=== PATIENT | female | born 1945 | race Caucasian/White ===

== ENCOUNTER → 2016-10-10 | Outpatient (CLI) | payer MEDICARE ==
[~2016-10-10] MED LIST: ADVAIR 250/501 EA INH; AMOXICILLIN500 MG PO; AUGMENTIN 875 M1 TAB PO; COMBIVENT1 ARO IH; DAYPRO600 M1 PO; DOXYCYCLINE HY100 M3 PO; Duoneb 3ML 3 MG/3 ML INH; FLONASE ALLERG9.9 ML NAS; MELATONIN5 M1 SL; OCEAN104 ML NS; PREDNISONE20 M1 PO; PROVENTIL0.09 MG/AC IH; SPIRIVA18 MCG PO; TORADOL10 MG PO; VIBRAMYCIN100 MG PO; ZYRTEC10 MG PO
[2016-10-10 10:04] LABS: HEMOGLOBIN A1c 5.1 % (4.8-5.6)
== END | disposition home or self-care (01) ==
LOC: LAB 09:19
PROVIDERS: Internal Medicine Pulmonary Disease
DX: R42 Dizziness and giddiness (principal); Z79.899 Other long term (current) drug therapy

== ENCOUNTER → 2017-09-12 | Day surgery (SDC) | payer MEDICARE ==
[~2017-09-12] VITALS: Ht 170.1 cm; Wt 77.1 kg
[~2017-09-12] MED LIST changes: +ANORO ELLIPTA1 EACH INH; +PROVENTIL HFA6.7 GM INH; +WARFARIN SODIUM4 MG PO
--- NOTE | ~2017-09-12 | O ---
[place], [place] OPERATIVE NOTE NAME: ALISHA FRANCIS UNIT #: [id number] ROOM: DOCTOR: ALEXANDRA DE LA CRUZ MD BIRTHDATE: [birth year] DOS: 09/12/2017 PREOPERATIVE DIAGNOSIS: Cataract, left eye. POSTOPERATIVE DIAGNOSIS: Cataract, left eye. OPERATION: Extracapsular cataract extraction by phacoemulsification with posterior chamber intraocular lens implantation, left eye. ANESTHESIA: Monitored standby. OPERATIVE FINDINGS AND PROCEDURE: 2% Xylocaine topical anesthetic gel was applied to the eye in the preop area. The patient was taken to the operating room and prepped and draped in the standard fashion for sterile intraocular surgery. A time out procedure was performed verifying correct patient, correct site and corrects lens with Teresa De La Cruz MD. The operating microscope was swung into position and the lid speculum was inserted. Using a Stephanie paracentesis blade, a paracentesis was made through clear cornea. Viscoelastic was used to fill the anterior chamber. Using a metal keratome a 2.4 mm self-sealing clear corneal cataract incision was made temporally at the limbus. Using a pre-bent 25 gauge cystotome needle, a standard continuous curvilinear capsulorrhexis was performed. The anterior capsule was removed with forceps. The lens nucleus was hydrodissected and phacoemulsified in the posterior chamber. Cortical material was removed with the irrigation aspiration hand piece and the posterior capsule was then polished with a curet under irrigation. The posterior chamber and capsular bag were filled with viscoelastic. A posterior chamber intraocular lens manufactured by: Dg, Model #[id number], and 30.0 diopters in strength were then inserted into the posterior chamber and within the capsular bag using the lens cartridge and injector system. Viscoelastic was removed using the irrigation aspiration handpiece. The anterior chamber was filled with balanced salt solution through the paracentesis. Both the paracentesis site and cataract incisions were hydrated with BSS and verified to be water-tight and self-sealing. Cefuroxime 1 mg/0.1 mL was injected into the anterior chamber through the paracentesis site. The incision checked to be water-tight using a Weck-Skylar sponge. The integrity of the cataract wound and ocular tension were checked. Lid speculum and drapes were removed. The patient was transferred from the operating room to the recovery room in satisfactory condition. [place], [place] OPERATIVE NOTE NAME: ALISHA FRANCIS UNIT #: [id number] ROOM: DOCTOR: ALEXANDRA DE LA CRUZ MD BIRTHDATE: [birth year] ALEXANDRA DE LA CRUZ MD CM:OPRECORD:OPERATIVE NOTE [id number] ALEXANDRA DE LA CRUZ MD 09/12/17 1024 interface
[2017-09-12 09:00] VITALS: BP 133/54
[2017-09-12 10:14] VITALS: BP 128/63
[2017-09-12 10:29] VITALS: BP 122/47
[2017-09-12 10:44] VITALS: BP 128/54
== END | disposition home or self-care (01) ==
LOC: SDC 09-06 10:15
DX: H25.812 Combined forms of age-related cataract, left eye (principal); J44.9 Chronic obstructive pulmonary disease, unspecified; F41.9 Anxiety disorder, unspecified; F32.9 Major depressive disorder, single episode, unspecified; Z87.891 Personal history of nicotine dependence; I48.91 Unspecified atrial fibrillation

== ENCOUNTER → 2017-10-10 | Day surgery (SDC) | payer MEDICARE ==
[~2017-10-10] VITALS: Ht 170.1 cm; Wt 77.1 kg
--- NOTE | ~2017-10-10 | O ---
[place], [place] OPERATIVE NOTE [id number] UN[facility] #: [id number] ROOM: DOCTOR: ALEXANDRA DE LA CRUZ MD BIRTHDATE: [birth year] DOS: 10/10/2017 PREOPERATIVE DIAGNOSIS: Cataract, right eye. POSTOPERATIVE DIAGNOSIS: Cataract, right eye. OPERATION: Extracapsular cataract extraction by phacoemulsification with posterior chamber intraocular lens implantation, right eye. ANESTHESIA: Monitored standby. OPERATIVE FINDINGS AND PROCEDURE: 2% Xylocaine topical anesthetic gel was applied to the eye in the preop area. The patient was taken to the operating room and prepped and draped in the standard fashion for sterile intraocular surgery. A time out procedure was performed verifying correct patient, correct site and corrects lens with Teresa De La Cruz M.D. The operating microscope was swung into position and the lid speculum was inserted. Using a Stephanie paracentesis blade, a paracentesis was made through clear cornea. Viscoelastic was used to fill the anterior chamber. Using a metal keratome a 2.4 mm self-sealing clear corneal cataract incision was made temporally at the limbus. Using a pre-bent 25 gauge cystotome needle, a standard continuous curvilinear capsulorrhexis was performed. The anterior capsule was removed with forceps. The lens nucleus was hydrodissected and phacoemulsified in the posterior chamber. Cortical material was removed with the irrigation aspiration hand piece and the posterior capsule was then polished with a curet under irrigation. The posterior chamber and capsular bag were filled with viscoelastic. A posterior chamber intraocular lens manufactured by: Dg, Model #[id number], and 29.0 diopters in strength were then inserted into the posterior chamber and within the capsular bag using the lens cartridge and injector system. Viscoelastic was removed using the irrigation aspiration handpiece. The anterior chamber was filled with balanced salt solution through the paracentesis. Both the paracentesis site and cataract incisions were hydrated with BSS and verified to be water-tight and self-sealing. Cefuroxime 1 mg/0.1 mL was injected into the anterior chamber through the paracentesis site. The incision checked to be water-tight using a Weck-Skylar sponge. The integrity of the cataract wound and ocular tension were checked. Lid speculum and drapes were removed. The patient was transferred from the operating room to the recovery room in satisfactory condition. [place], [place] OPERATIVE NOTE NAME: ALISHA FRANCIS UNIT #: [id number] ROOM: DOCTOR: ALEXANDRA DE LA CRUZ MD BIRTHDATE: [birth year] ALEXANDRA DE LA CRUZ MD CM:OPRECORD:OPERATIVE NOTE [id number] ALEXANDRA DE LA CRUZ MD 10/10/17 1244 interface
[2017-10-10 11:15] VITALS: BP 123/48
[2017-10-10 11:50] VITALS: BP 119/63
[2017-10-10 12:05] VITALS: BP 124/71
[2017-10-10 12:20] VITALS: BP 120/55
== END | disposition home or self-care (01) ==
LOC: SDC 10-08 13:15
DX: H25.811 Combined forms of age-related cataract, right eye (principal); J44.9 Chronic obstructive pulmonary disease, unspecified; F41.9 Anxiety disorder, unspecified; F32.9 Major depressive disorder, single episode, unspecified; Z87.891 Personal history of nicotine dependence; I48.91 Unspecified atrial fibrillation

== ENCOUNTER 2018-05-05 00:26 | Emergency (ER) | payer MEDICARE ==
[~2018-05-05] VITALS: Ht 170.1 cm; Wt 81.6 kg
--- NOTE | ~2018-05-05 | EKG ---
[place], [place] ELECTROCARDIOGRAM REPORT NAME: ALISHA FRANCIS UNIT #: [id number] ROOM: DOCTOR: CONNERANY DRAFT REPORT BIRTHDATE: [birth year] [facility] Test Date: 2018-05-05 Test Time: 00:33:29 Pat Name: ALISHA FRANCIS Department: Room: Gender: F Library Helper: iman : 1945 Requested By: JEREMIAS CRABTREE Order Number: [id number] Reading MD: Greg Muhammad MD Measurements Intervals [place] Rate: 173 P: 0 AL: 91 QRS: 25 QRSD: 74 T: 72 QT: 275 QTc: 467 Interpretive Statements Supraventricular tachycardia Multiform ventricular premature complexes Low voltage, extremity leads Abnormal R-wave progression, late transition ST depression, probably rate related Artifact in lead(s) I,II,III,aVR,aVL,aVF,V1,V5,V6 Electronically Signed On 05-06-2018 8:04:50 PDT by Greg Muhammad MD CM:EKGRPT:ELECTROCARDIOGRAM REPORT [id number] JEREMIAS LOYA DRAFT REPORT JEREMIAS CRABTREE DO
[2018-05-05 01:06] LABS: BASO # 0.1 10*3/uL (0.0-0.1); BASO % 0.5 % (0.0-1.0); EOS # 0.1 10*3/uL (0.0-0.4); EOS % 0.5 % (1.0-4.0); HEMATOCRIT 40.1 % (37.0-47.0); HEMOGLOBIN 12.8 g/dl (12.0-16.0); LYMPH # 2.6 10*3/uL (1.3-4.4); LYMPH % 17.7 % (27.0-41.0); MEAN CELL VOLUME 94.6 fl (81.0-99.0); MEAN CORPUSCULAR HGB 30.2 pg (27.0-31.0); MEAN CORPUSCULAR HGB CONC 31.9 g/dl (33.0-37.0); MEAN PLATELET VOLUME 9.9 fl (9.6-12.3); MONO % 6.6 % (3.0-9.0); NEUT # 10.8 10*3/uL (2.3-7.9); NEUT % 74.4 % (47.0-73.0); PLATELET COUNT AUTOMATED 241 10*3/uL (130-400); RED BLOOD COUNT 4.24 10*6/uL (4.10-5.10); RED CELL DISTRI WIDTH 13.7 % (0-14.5); WHITE BLOOD COUNT 14.6 10*3/uL (4.8-10.8)
[2018-05-05 01:16] LABS: ACT PARTIAL THROMBO TIME 37.1 SECONDS (20.8-31.5); INTERNATIONAL NORM RATIO 3.1 (2.0-3.5)
[2018-05-05 01:23] LABS: ABG BASE EXCESS -4.5 mmol/L (-2.0-2.0); ABG HCO3 23.9 mmol/l (22-26); ARTERIAL BLOOD GAS PCO2 58.4 mmHg (35-45); ARTERIAL BLOOD GAS PH 7.228 (7.35-7.45)
[2018-05-05 01:24] LABS: ALBUMIN 3.8 gm/dl (3.1-4.5); ALKALINE PHOSPHATASE 78 U/L (45-117); BUN 13 mg/dl (7-24); CHLORIDE 107 mmol/L (98-107); CREATININE 0.82 mg/dL (0.55-1.02); POTASSIUM 3.7 mmol/L (3.5-5.1); SGOT/AST 20 IU/L (3-35); SGPT/ALT 20 U/L (12-78); SODIUM 139 mmol/L (136-145)
[2018-05-05 01:25] LABS: TROPONIN I < 0.015 ng/ml (<0.045)
== END 2018-05-05 08:00 | disposition home or self-care (01) ==
LOC: ED 00:26
PROVIDERS: Student in an Organized Health Care Education/Training Program
DX: I48.91 Unspecified atrial fibrillation (principal); J44.9 Chronic obstructive pulmonary disease, unspecified; Z79.02 Long term (current) use of antithrombotics/antiplatelets; Z79.899 Other long term (current) drug therapy

== ENCOUNTER 2018-08-19 14:30 | Emergency (ER) | payer MEDICARE, OTHER ==
[~2018-08-19] VITALS: Ht 170.1 cm; Wt 74.8 kg
[2018-08-19] MEDS ORDERED: ZITHROMAX250 MG PO (15:30)
== END 2018-08-19 16:00 | disposition home or self-care (01) ==
LOC: ED 14:30
DX: J06.9 Acute upper respiratory infection, unspecified (principal); I48.91 Unspecified atrial fibrillation; Z79.899 Other long term (current) drug therapy; Z79.01 Long term (current) use of anticoagulants

== ENCOUNTER 2019-04-25 08:39 | Inpatient (IN) | payer MEDICARE, OTHER ==
[2019-04-25] VITALS (9 sets, daily range): BP systolic 100–125; BP diastolic 47–67
[~2019-04-25] VITALS: Ht 165.1 cm; Wt 69.9 kg
--- NOTE | ~2019-04-25 | EKG ---
[place], [place] ELECTROCARDIOGRAM REPORT NAME: ALISHA FRANCIS UNIT #: [id number] ROOM: 507 DOCTOR: GEETA DRAFT REPORT BIRTHDATE: [birth year] [facility] Test Date: 2019-04-25 Test Time: 08:58:45 Pat Name: ALISHA FRANCIS Department: Room: 507 Gender: F Legal Coordinator: WAI : 1945 Requested By: STEPHANIE HOOKER Order Number: [id number] Reading MD: Enrique Reed MD Measurements Intervals [place] Rate: 90 P: 85 NV: 156 QRS: -39 QRSD: 85 T: 64 QT: 337 QTc: 413 Interpretive Statements Sinus rhythm Left axis deviation Borderline low voltage, extremity leads Compared to ECG 05/05/2018 00:33:29 Left-axis deviation now present Supraventricular tachycardia no longer present Ventricular premature complex(es) no longer present ST (T wave) deviation no longer present Electronically Signed On 04-25-2019 12:30:16 PDT by Enrique Reed MD CM:EKGRPT:ELECTROCARDIOGRAM REPORT [id number] STEPHANIE LOYA DRAFT REPORT STEPHANIE HOOKER DO
[~2019-04-25 08:39] MED LIST changes: +ZITHROMAX250 MG PO
[2019-04-25 09:15] LABS: HEMATOCRIT 40.6 % (37.0-47.0); HEMOGLOBIN 13.1 g/dl (12.0-16.0); MEAN CELL VOLUME 90.4 fl (81.0-99.0); MEAN CORPUSCULAR HGB 29.2 pg (27.0-31.0); MEAN CORPUSCULAR HGB CONC 32.3 g/dl (33.0-37.0); MEAN PLATELET VOLUME 10.4 fl (9.6-12.3); PLATELET COUNT AUTOMATED 207 10*3/uL (130-400); RED BLOOD COUNT 4.49 10*6/uL (4.10-5.10); RED CELL DISTRI WIDTH 14.6 % (0-14.5); WHITE BLOOD COUNT 20.6 10*3/uL (4.8-10.8)
[2019-04-25 09:25] LABS: INTERNATIONAL NORM RATIO 1.6 (2.0-3.5)
[2019-04-25 09:32] LABS: ALBUMIN 3.6 gm/dl (3.1-4.5); ALKALINE PHOSPHATASE 83 U/L (45-117); BUN 10 mg/dl (7-24); CHLORIDE 101 mmol/L (98-107); CREATININE 0.96 mg/dL (0.55-1.02); POTASSIUM 3.7 mmol/L (3.5-5.1); SGOT/AST 12 IU/L (3-35); SGPT/ALT 17 U/L (12-78); SODIUM 135 mmol/L (136-145); TOTAL PROTEIN 7.4 gm/dL (6.4-8.2)
[2019-04-25 09:38] LABS: TROPONIN I < 0.015 ng/ml (<0.045)
[2019-04-25 09:39] LABS: THYROID STIM HORMONE (HS) 0.944 uIU/ml (0.358-4.75)
[2019-04-25 09:46] LABS: TOTAL CELLS COUNTED 100 #CELLS
[2019-04-25 09:47] LABS: PLATELET SUFFICIENCY NORMAL (NORMAL); POLYCHROMASIA SLIGHT
[2019-04-25 10:02] LABS: BILIRUBIN NEGATIVE (NEGATIVE); BLOOD 1+ (NEGATIVE); CLARITY SL CLOUDY (CLEAR); COLOR YELLOW (YELLOW); GLUCOSE NEGATIVE (NEGATIVE); KETONE TRACE (NEGATIVE); LEUKO ESTERASE TRACE (NEGATIVE); NITRITE NEGATIVE (NEGATIVE); PH 6.5 (5.0-9.0); SPECIFIC GRAVITY <= 1.005 (1.005-1.030); UROBILINOGEN 0.2 E.U./dl (0.2-1.0)
[2019-04-25 10:24] LABS: BACTERIA 2+; EPITHELIAL CELLS 15-20; WBC 21-30 wbc/hpf (0-5)
[2019-04-25 10:25] LABS: RBC 16-20 rbc/hpf (0-2)
--- NOTE | 2019-04-25 10:45 | NUR ---
PATIENT MEDICATED WITH MORPHINE FOR HEADACHE PRESSURE BEHIND BOTH EYES 3/10.
--- NOTE | 2019-04-25 11:00 | NUR ---
A 74, admitted to , under the services of LILIAN Schneider DO with a diagnosis of SYNCOPE NAUSEA HEADACHE. Chief complaint is HEADACHE. Patient arrived via stretcher from ER. Monitor applied. Initial assessment completed. Vital signs taken and recorded. LILIAN SCHNEIDER DO notified of admission to the unit. Orders received. See assessment for past medical history, medications and allergies. Patient and/or family oriented to unit. [address] visitation policy reviewed. Clothing/patient valuable form completed. ARLET LOPEZ
[2019-04-25] MEDS ORDERED: BREO ELLIPTA 21 EACH INH (11:39)
[2019-04-25] MEDS ORDERED: DIAZEPAM2 MG PO (11:40)
--- NOTE | 2019-04-25 15:01 | NUR ---
PHYSICAL THERAPY Physical therapy evaluation attempted however Pt refused. Will attempt at another date. Thank you Kailee Gallardo, PT, DPT
--- NOTE | 2019-04-25 15:02 | NUR ---
Patient declined Occupational Therapy stating she was "too tired" . Charissa Robles OTR/l
--- NOTE | 2019-04-25 21:00 | NUR ---
RESTING IN BED WITH NO ACUTE DISTRESS NOTED. RESPIRATIONS EASY. LUNGS DIMINISHED WITH FAINT EXPIRATORY WHEEZES. PULSE OX 93% RA. OFFERED AND EDUCATED REGARDING TEDS, DECLINED. CALL LIGHT WITHIN REACH. NO VOICED COMPLAINTS.
--- NOTE | 2019-04-25 22:42 | NUR ---
REQUESTED AND RECEIVED NORCO PER PRN ORDER FOR COMPLAINTS OF HEADACHE RATING A 6. ALSO MEDICATED WITH RESTORIL TO ASSIST WITH SLEEP. WILL MONITOR
--- NOTE | 2019-04-25 23:00 | NUR ---
PATIENT REQUESTING HOME MEDS STATING "I HAVE TO HAVE MY COUMADIN." ,ED REC REVIEWED AND ACCURATE IN COMPUTER. DR ZAFAR CONTACTED AND INFORMED
[2019-04-26] VITALS: BP 95/48
--- NOTE | 2019-04-26 | NUR ---
EARLIER MEDS APPEAR EFFECTIVE. SLEEPING. RESPIRATIONS EASY. VSS. CALL LIGHT WITHIN REACH
--- NOTE | 2019-04-26 00:24 | NUR ---
24 HR chart check completed.
--- NOTE | 2019-04-26 06:00 | NUR ---
SLEPT THROUGHOUT NIGHT WITH NO DISTRESS NOTED. RESPIRATIONS EASY. CALL LIGHT WITHIN REACH. NO VOICED COMPLAINTS THIS SHIFT
[2019-04-26 07:21] LABS: INTERNATIONAL NORM RATIO 1.8 (2.0-3.5)
[2019-04-26 07:23] LABS: BASO % 0.3 % (0.0-1.0); EOS # 0.1 10*3/uL (0.0-0.4); EOS % 0.4 % (1.0-4.0); HEMATOCRIT 33.6 % (37.0-47.0); HEMOGLOBIN 10.7 g/dl (12.0-16.0); LYMPH % 6.5 % (27.0-41.0); MEAN CORPUSCULAR HGB 29.8 pg (27.0-31.0); MEAN CORPUSCULAR HGB CONC 31.8 g/dl (33.0-37.0); MEAN PLATELET VOLUME 10.8 fl (9.6-12.3); MONO # 0.9 10*3/uL (0.1-1.0); MONO % 6.1 % (3.0-9.0); NEUT # 12.6 10*3/uL (2.3-7.9); NEUT % 86.2 % (47.0-73.0); PLATELET COUNT AUTOMATED 162 10*3/uL (130-400); RED BLOOD COUNT 3.59 10*6/uL (4.10-5.10); WHITE BLOOD COUNT 14.6 10*3/uL (4.8-10.8)
[2019-04-26 07:25] LABS: MEAN CELL VOLUME 93.6 fl (81.0-99.0)
[2019-04-26 07:34] LABS: BUN 12 mg/dl (7-24); CHLORIDE 109 mmol/L (98-107); CHOLESTEROL 110 mg/dL (<200); CREATININE 0.75 mg/dL (0.55-1.02); HDL CHOLESTEROL 52 mg/dl (40-60); LDL CHOLESTEROL 50 mg/dL (9-159); PHOSPHOROUS 2.8 mg/dL (2.5-4.9); POTASSIUM 4.2 mmol/L (3.5-5.1); SODIUM 139 mmol/L (136-145); TRIGLYCERIDES 38 mg/dl (<150); VLDL CHOLESTEROL 8 mg/dL (6-40)
[2019-04-26 08:00] VITALS: BP 108/54
[2019-04-26 12:00] VITALS: BP 112/55
[2019-04-26 16:00] VITALS: BP 143/74
[2019-04-26 20:00] VITALS: BP 141/70
--- NOTE | 2019-04-26 20:56 | NUR ---
PATIENT RESTING IN BED FOR SHIFT ASSESSMENT. PLEASANT/COOPERATIVE WITH CARE. C/O NASUEA. MEDICATED WITH PRN ZOFRAN ORDERED. NO FURTHER VOICED COMPLAINTS. 2LNC MAINTAINED. CALL LIGHT IN REACH. WILL MONITOR.
[2019-04-27] VITALS: BP 136/70
--- NOTE | 2019-04-27 03:23 | NUR ---
PATIENT SLEEPING. NO S/S OF DISTRESS NOTED. CALL LIGHT IN REACH
--- NOTE | 2019-04-27 05:40 | NUR ---
PATIENT MEDICATED WITH PRN TYLENOL ORDERED FOR C/O A HEADACHE.
[2019-04-27 07:33] LABS: HEMATOCRIT 37.2 % (37.0-47.0); HEMOGLOBIN 11.8 g/dl (12.0-16.0); MEAN CORPUSCULAR HGB 28.9 pg (27.0-31.0); MEAN CORPUSCULAR HGB CONC 31.7 g/dl (33.0-37.0); MEAN PLATELET VOLUME 11.2 fl (9.6-12.3); PLATELET COUNT AUTOMATED 210 10*3/uL (130-400); RED BLOOD COUNT 4.09 10*6/uL (4.10-5.10); RED CELL DISTRI WIDTH 14.6 % (0-14.5); WHITE BLOOD COUNT 11.4 10*3/uL (4.8-10.8)
[2019-04-27 07:44] LABS: INTERNATIONAL NORM RATIO 1.9 (2.0-3.5)
[2019-04-27 07:56] LABS: PLATELET SUFFICIENCY NORMAL (NORMAL); TOTAL CELLS COUNTED 100 #CELLS
[2019-04-27 08:00] VITALS: BP 160/84
[2019-04-27 08:09] LABS: BUN 11 mg/dl (7-24); CHLORIDE 108 mmol/L (98-107); SODIUM 140 mmol/L (136-145)
[2019-04-27 08:11] LABS: CREATININE 0.66 mg/dL (0.55-1.02)
--- NOTE | 2019-04-27 09:30 | NUR ---
DR ALLEN NOTIFIED OF PT CONTINUED HEADACHE, NEW ORDERS TO FOLLOW
[2019-04-27 12:00] VITALS: BP 128/60
[2019-04-27 16:00] VITALS: BP 137/73
--- NOTE | 2019-04-27 16:50 | NUR ---
PT CONCERNED RE: INR LEVEL. PT NOTIFIED NEW INR ORDERED FOR THE AM. DR DILLON NOTIFIED. HE STATES THEY WILL LOOK AT IT TOMORROW AND ADJUST IF NECESSARY
[2019-04-27 20:00] VITALS: BP 131/77
--- NOTE | 2019-04-27 20:49 | NUR ---
Neurological: AAOX3, ANXIOUS Respiratory: NONLABORED, ROOM AIR Breath sounds: DIMINISHED, WHEEZE PB Cough: DRY COUGH Cardiovascular: IRREGULAR HX:AFIB, DENIES CP/PRESSURE, NO EDEMA, PPP Gastrointestinal: NORMOACTIVE X4 QUADS, DENIES N/V/D/C, ABD SOFT/NT/ND Genito/Urinary: DENIES DYSURIA Musculoskeketal: AMBULATORY, GAIT STEADY, SKIN INTACT PATIENT IS RESTING IN BED WITH EASY AND REGULAR RESPERS ON ROOM AIR. ASSESSMENT IS COMPLETE. PATIENT AAPPEARS ANXIOUS AND C/O SINUS HEADACHE AND ANXIETY. PRN TYLENOL AND VAILUM PROVIDED FOR HEADACHE AND ANXIETY. BED IS LOW, LOCKED, AND CALL LIGHT IS WITHIN REACH. WILL CONTNIUE TO MONITOR. GABRIELA DE LA CRUZ A
[2019-04-28] VITALS: BP 124/67
--- NOTE | 2019-04-28 04:58 | NUR ---
Patient sleeping. Respirations relaxed and easy. GABRIELA DE LA CRUZ
--- NOTE | 2019-04-28 06:35 | NUR ---
24 HR chart check completed.
[2019-04-28 06:44] LABS: HEMATOCRIT 33.3 % (37.0-47.0); HEMOGLOBIN 10.7 g/dl (12.0-16.0); MEAN CELL VOLUME 90.2 fl (81.0-99.0); MEAN CORPUSCULAR HGB CONC 32.1 g/dl (33.0-37.0); MEAN PLATELET VOLUME 10.8 fl (9.6-12.3); PLATELET COUNT AUTOMATED 236 10*3/uL (130-400); RED BLOOD COUNT 3.69 10*6/uL (4.10-5.10); RED CELL DISTRI WIDTH 14.7 % (0-14.5); WHITE BLOOD COUNT 17.1 10*3/uL (4.8-10.8)
[2019-04-28 06:46] LABS: BUN 20 mg/dl (7-24); CHLORIDE 107 mmol/L (98-107); CREATININE 0.69 mg/dL (0.55-1.02); POTASSIUM 3.8 mmol/L (3.5-5.1); SODIUM 138 mmol/L (136-145)
--- NOTE | 2019-04-28 06:57 | NUR ---
Patient sleeping. Respirations relaxed and easy. Call light is within reach. GABRIELA DE LA CRUZ
[2019-04-28 07:14] LABS: INTERNATIONAL NORM RATIO 2.9 (2.0-3.5)
--- NOTE | 2019-04-28 07:30 | NUR ---
TOOK OVER CARE OF PT AT THIS TIME. PT LYING IN BED. RESPIRATIONS EASY AND UNLABORED ON ROOM AIR. NO S/S OF DISTRESS. NO COMPLAINTS VOICED. ALL SAFETY MEASURES IN PLACE. CALL LIGHT IN REACH.
[2019-04-28 07:47] LABS: PLATELET SUFFICIENCY NORMAL (NORMAL); TOTAL CELLS COUNTED 100 #CELLS
[2019-04-28 08:00] VITALS: BP 139/86
--- NOTE | 2019-04-28 09:00 | NUR ---
Bookkeeper in to talk to patient. Patient states lives at home with . There are few steps in the home. Physician: ellen Pharmacy: [facility] Home health services: none Patient's level of ADLs: INDEPENDENT Patient has working utilities: all working DME: none Follow-up physician's appointment after d/c: will be made by hospitalist nurse director upon discharge Does patient want to access PORTAL?: no Discharge plan discussed with patient, she states she lives at home with her , she is independent in adls and ambulation, she states she is independent in adls and ambulation she states she will be returning home today and denies any home needs. RANDELL SANTOS
[2019-04-28] MEDS ORDERED: PREDNISONE10 MG PO (09:01)
[2019-04-28] MEDS ORDERED: LEVAQUIN500 M2 PO (09:01)
[2019-04-28] MEDS ORDERED: VITAMIN D32000 UNI1 PO (09:01)
--- NOTE | 2019-04-28 09:30 | NUR ---
Occupational Therapy evaluation offered this date. Patient seated in chair and responds that she is being discharged today. No occupational therapy evaluation performed Charissa Robles OTR/Arcelia
--- NOTE | 2019-04-28 09:32 | NUR ---
PHYSICAL THERAPY Physical therapy evaluation attempted however Pt sitting in bedside chair waiting for discharge papers. Pt has no therapy needs. Thank you Kailee Gallardo, PT, DPT
--- NOTE | 2019-04-28 10:25 | NUR ---
PT GIVEN TYLENOL FOR C/O HEADACHE. WILL MONITOR FOR EFFECTIVENESS. CALL LIGHT IN REACH.
--- NOTE | 2019-04-28 11:00 | NUR ---
DR ROWELL'S OFFICE CALLED TO CONFIRM PT NEXT APPOINTMENT FOR INR CHECK. APPOINTMENT IS FOR NEXT SUNDAY, PATIENT NOTIFIED AND PAPERWORK TO BE SENT HOME WITH PATIENT.
--- NOTE | 2019-04-28 11:40 | NUR ---
Discharge instructions reviewed with patient/family. Patient receptive and verbalizes understanding. Follow-up care arranged. Written instructions given to patient/family. LAWSON TORRES
== END 2019-04-28 11:40 | disposition home or self-care (01) | DRG 871 ==
LOC: ED 08:39 → EDHOLD 10:32 → 5E 10:32
PROVIDERS: Internal Medicine; Student in an Organized Health Care Education/Training Program; ADMIT Emergency Medicine
DX: A41.9 Sepsis, unspecified organism (principal); J18.1 Lobar pneumonia, unspecified organism; N17.9 Acute kidney failure, unspecified; N39.0 Urinary tract infection, site not specified; R55 Syncope and collapse; R65.20 Severe sepsis without septic shock; E86.0 Dehydration; R73.9 Hyperglycemia, unspecified; F41.9 Anxiety disorder, unspecified; F32.9 Major depressive disorder, single episode, unspecified; I48.91 Unspecified atrial fibrillation; J43.9 Emphysema, unspecified; I27.20 Pulmonary hypertension, unspecified; Z83.6 Family history of other diseases of the respiratory system; Z83.79 Family history of other diseases of the digestive system

== ENCOUNTER → 2019-05-23 | Outpatient (CLI) | payer MEDICARE, OTHER ==
[~2019-05-23] MED LIST changes: +BREO ELLIPTA 21 EACH INH; +DIAZEPAM2 MG PO; +LEVAQUIN500 M2 PO; +PREDNISONE10 MG PO; +VITAMIN D32000 UNI1 PO
[2019-05-23 13:49] LABS: FREE T4 1.11 ng/dl (0.76-1.46)
[2019-05-23 13:54] LABS: THYROID STIM HORMONE (HS) 1.88 uIU/ml (0.358-4.75)
[2019-05-26 11:07] LABS: ANTI-DSDNA ANTIBODIES 096339 <1 IU/mL (0-9); ANTI-RNP ANTIBODIES <0.2 AI (0.0-0.9); ANTICHROMATIN ANTIBODIES <0.2 AI (0.0-0.9); ANTISCLERODERMA-70 AB 0.7 AI (0.0-0.9); SJOGREN ANTI-SS-A <0.2 AI (0.0-0.9); SJOREN AB, ANTI-SS-B <0.2 AI (0.0-0.9)
== END | disposition home or self-care (01) ==
LOC: LAB 12:31
PROVIDERS: Internal Medicine Pulmonary Disease
DX: R42 Dizziness and giddiness (principal); R53.83 Other fatigue

== ENCOUNTER → 2019-06-06 | Outpatient (CLI) | payer MEDICARE, OTHER ==
[2019-06-06 08:30] VITALS: BP 139/71
[2019-06-07 12:10] LABS: CORTISOL #2 20.9 ug/dL (Not Estab.); CORTISOL #3 26.1 ug/dL (Not Estab.); CORTISOL BASELINE 12.1 ug/dL (.)
== END | disposition home or self-care (01) ==
LOC: INJECTION 06-03 07:39
PROVIDERS: Internal Medicine Pulmonary Disease
DX: R42 Dizziness and giddiness (principal)

== ENCOUNTER 2020-05-15 02:30 | Inpatient (IN) | payer MEDICARE, OTHER ==
[2020-05-15] VITALS (12 sets, daily range): BP systolic 98–189; BP diastolic 53–98
[~2020-05-15] VITALS: Ht 170.1 cm; Wt 72.8 kg
[~2020-05-15 02:30] MED LIST changes: -DIAZEPAM2 MG PO; +DIAZEPAM5 MG PO
[2020-05-15 02:56] LABS: BASO # 0.1 10*3/uL (0.0-0.1); BASO % 0.9 % (0.0-1.0); EOS # 0.1 10*3/uL (0.0-0.4); EOS % 1.2 % (1.0-4.0); HEMATOCRIT 33.2 % (37.0-47.0); LYMPH # 1.8 10*3/uL (1.3-4.4); LYMPH % 21.1 % (27.0-41.0); MEAN CORPUSCULAR HGB 25.1 pg (27.0-31.0); MEAN CORPUSCULAR HGB CONC 29.2 g/dl (33.0-37.0); MEAN PLATELET VOLUME 10.4 fl (9.6-12.3); MONO # 0.6 10*3/uL (0.1-1.0); MONO % 6.5 % (3.0-9.0); NEUT # 6.1 10*3/uL (2.3-7.9); NEUT % 70.1 % (47.0-73.0); PLATELET COUNT AUTOMATED 224 10*3/uL (130-400); RED BLOOD COUNT 3.86 10*6/uL (4.10-5.10); WHITE BLOOD COUNT 8.7 10*3/uL (4.8-10.8)
[2020-05-15 03:07] LABS: ACT PARTIAL THROMBO TIME 31.9 SECONDS (20.0-32.1)
[2020-05-15 03:14] LABS: ALBUMIN 3.7 gm/dl (3.1-4.5); ALKALINE PHOSPHATASE 89 U/L (45-117); BUN 14 mg/dl (7-24); CHLORIDE 108 mmol/L (98-107); CREATININE 0.76 mg/dL (0.55-1.02); POTASSIUM 3.4 mmol/L (3.5-5.1); SGOT/AST 13 IU/L (3-35); SGPT/ALT 16 U/L (12-78); SODIUM 143 mmol/L (136-145); TOTAL PROTEIN 6.9 gm/dL (6.4-8.2)
--- NOTE | 2020-05-15 03:14 | NUR ---
Pt has postive pedal pulses and plus one edema noted to lower legs at this time.
[2020-05-15 03:15] LABS: TROPONIN I < 0.015 ng/ml (<0.045)
--- NOTE | 2020-05-15 03:22 | NUR ---
In to see pt at this time.Pt states she is still having trouble breathing at this time md aware at this time and stated he woild order another treatment at this time.
--- NOTE | 2020-05-15 04:07 | NUR ---
Pt has small skin tear noted on left lower arm at this time.Pt has bandaid in place and took off and it was about 1cm at this time.Pt is alert and oriented at this time and refusing wound photos.
[2020-05-15 04:14] LABS: ABG BASE EXCESS 2.6 mmol/L (-2.0-2.0); ARTERIAL BLOOD GAS PH 7.341 (7.35-7.45)
--- NOTE | 2020-05-15 04:14 | NUR ---
Pt to ct scan at this time.
--- NOTE | 2020-05-15 04:30 | NUR ---
Pt back from ct scan at this time.Pt appears more calm at this time and pt not breathing as fast at this time.
--- NOTE | 2020-05-15 04:50 | NUR ---
A 75, admitted to [facility], under the services of CHIP Tavera DO with a diagnosis of SOB,COPD,AFIB RVR, and patchy atelectasis. Chief complaint is shortness of breath. Patient arrived via stretcher from ER. Monitor applied. Initial assessment completed. Vital signs taken and recorded. CHIP TAVERA DO notified of admission to the unit. Orders received. See assessment for past medical history, medications and allergies. Patient and/or family oriented to unit. [facility] visitation policy reviewed. Clothing/patient valuable form completed. ANA GRAY
[2020-05-15 04:53] LABS: THYROID STIM HORMONE (HS) 4.59 uIU/ml (0.358-4.75)
[2020-05-15] MEDS ORDERED: FLUDROCORTISON0.1 MG PO (05:13)
[2020-05-15 05:51] LABS: CPK 123 U/L (26-192)
--- NOTE | 2020-05-15 08:40 | NUR ---
Awake and alert. Listless. Declines to order breakfast. Spouse called in and update was given.
--- NOTE | 2020-05-15 10:15 | NUR ---
[facility].
--- NOTE | 2020-05-15 11:00 | NUR ---
Dr. Pearson was notified of consult . virtual visit w/ pt. Orders were recieved
--- NOTE | 2020-05-15 12:12 | NUR ---
Medicated for c/o headache. Lunch ordered. Spouse called in and update was given. RT notified of ABG and aersol orders.
[2020-05-15 12:56] LABS: ABG BASE EXCESS 4.8 mmol/L (-2.0-2.0); ARTERIAL BLOOD GAS PH 7.404 (7.35-7.45)
--- NOTE | 2020-05-15 14:09 | NUR ---
Cardizem to off.
[2020-05-15 14:25] LABS: BUN 11 mg/dl (7-24); CHLORIDE 106 mmol/L (98-107); CREATININE 0.84 mg/dL (0.55-1.02); SODIUM 144 mmol/L (136-145)
--- NOTE | 2020-05-15 20:05 | NUR ---
2200 PO DOSE OF LOPRESSOR GIVEN AT THIS TIME PATIENT HAD GOTTEN UP TO THE BATHROOM AND HEARTRATE BEGAN TO CLIMB INTO THE 140'S. PATIENT NOW BACK TO BED BUT HEARTRATE IS SUSTAINING IN THE 120'S. PATIENT DENIES FEELING ANY SYMPTOMS OF AFIB. RN WILL CONTINUE TO MONITOR
[2020-05-15] MEDS ORDERED: FLONASE ALLERG9.9 ML NAS (20:42)
--- NOTE | 2020-05-15 21:02 | NUR ---
PATIENT MEDICATED WITH CEPACOL COUGH DROP AND VALIUM PER DRS ORDERS FOR COMPLAINTS OF PERSISTENT COUGH AND FEELINGS OF ANXIOUSNESS. RN WILL CONTINUE TO MONITOR
--- NOTE | 2020-05-15 22:05 | NUR ---
PATIENT RESING IN BED WITH EYES CLOSED, APPEARS TO BE SLEEPING, EARLIER MEDICATIONS SEEM TO HAVE BEEN EFFECTIVE
--- NOTE | 2020-05-15 23:10 | NUR ---
Shift chart check completed.24 HR chart check completed.
[2020-05-16] VITALS: BP 114/84
--- NOTE | 2020-05-16 02:28 | NUR ---
SPOKE WITH PATIENT REGARDING HER PLAN OF CARE. UPDATED HIM ON AVAILABLE INFORMATION AND INSTRUCTED HIM TO CALL AND TALK TO THE PATIENT AT A LATER HOUR HER SLEEP IS IMPORTANT. HE VERBALIZED UNDERSTANDING. RN WILL CONTINUE TO MONITOR THIS PATIENT
[2020-05-16 04:00] VITALS: BP 119/76; BP 90/43
--- NOTE | 2020-05-16 04:20 | NUR ---
PATIENT MEDICATED WITH SCHEDULED ANTIBIOTIC WELL PRN CEPACOL COUGH DROPS SHE HAS BEEN COUGHING AND IT HAS NOW BECOME AVAILABLE TO GIVE AGAIN. PATIENT STATES IT HELPED SLIGHTLY EARLIER HER THROAT HAD BECOME SORE FROM COUGHING. RN WILL MONITOR
--- NOTE | 2020-05-16 06:10 | NUR ---
PATIENT MEDICATED WITH NORCO FOR COMPLAINTS OF HEADACHE,. RN WILL CONTINUE TO MONITOR
[2020-05-16 06:39] LABS: HEMATOCRIT 32.6 % (37.0-47.0); MEAN CELL VOLUME 85.6 fl (81.0-99.0); MEAN CORPUSCULAR HGB 25.2 pg (27.0-31.0); MEAN CORPUSCULAR HGB CONC 29.4 g/dl (33.0-37.0); MEAN PLATELET VOLUME 10.6 fl (9.6-12.3); PLATELET COUNT AUTOMATED 241 10*3/uL (130-400); RED BLOOD COUNT 3.81 10*6/uL (4.10-5.10); RED CELL DISTRI WIDTH 15.2 % (0-14.5)
[2020-05-16 06:49] LABS: INTERNATIONAL NORM RATIO 3.4 (2.0-3.5)
[2020-05-16 06:59] LABS: ALBUMIN 3.4 gm/dl (3.1-4.5); ALKALINE PHOSPHATASE 79 U/L (45-117); BUN 19 mg/dl (7-24); CHLORIDE 107 mmol/L (98-107); POTASSIUM 4.4 mmol/L (3.5-5.1); SGOT/AST 13 IU/L (3-35); SGPT/ALT 16 U/L (12-78); SODIUM 143 mmol/L (136-145)
[2020-05-16 08:00] VITALS: BP 108/73
[2020-05-16 08:11] LABS: ABG BASE EXCESS 5.6 mmol/L (-2.0-2.0); ARTERIAL BLOOD GAS PH 7.41 (7.35-7.45)
[2020-05-16 08:12] LABS: TOTAL CELLS COUNTED 100 #CELLS
[2020-05-16 08:13] LABS: PLATELET SUFFICIENCY NORMAL (NORMAL)
[2020-05-16 12:00] VITALS: BP 128/84
--- NOTE | 2020-05-16 12:20 | NUR ---
PT MEDICATED WITH NORCO 1 TAB PO FOR C/O HEADACHE PAIN.
[2020-05-16 16:00] VITALS: BP 126/81
[2020-05-16 20:00] VITALS: BP 134/90
[2020-05-17] VITALS: BP 131/84
[2020-05-17 07:01] LABS: BASO % 0.1 % (0.0-1.0); HEMATOCRIT 31.6 % (37.0-47.0); LYMPH # 0.9 10*3/uL (1.3-4.4); LYMPH % 5.4 % (27.0-41.0); MEAN CELL VOLUME 85.4 fl (81.0-99.0); MEAN CORPUSCULAR HGB 25.7 pg (27.0-31.0); MEAN CORPUSCULAR HGB CONC 30.1 g/dl (33.0-37.0); MEAN PLATELET VOLUME 10.5 fl (9.6-12.3); MONO # 0.7 10*3/uL (0.1-1.0); MONO % 3.9 % (3.0-9.0); NEUT # 15.5 10*3/uL (2.3-7.9); NEUT % 89.8 % (47.0-73.0); PLATELET COUNT AUTOMATED 252 10*3/uL (130-400); RED CELL DISTRI WIDTH 15.4 % (0-14.5); WHITE BLOOD COUNT 17.3 10*3/uL (4.8-10.8)
[2020-05-17 07:20] LABS: INTERNATIONAL NORM RATIO 4.4 (2.0-3.5)
[2020-05-17 07:29] LABS: BUN 24 mg/dl (7-24); CHLORIDE 105 mmol/L (98-107); POTASSIUM 4.4 mmol/L (3.5-5.1); SODIUM 139 mmol/L (136-145)
--- NOTE | 2020-05-17 07:30 | NUR ---
PT RESTING IN BED. RESPS EASY AND NON LABORED. NO S/S OF DISTRESS NOTED. VSS. WHITE BOARD UPDATED. POC DISCUSSED W PT. A/O X3. 3L NC INTACT. DENIES SOB. WILL CONTINUE TO MONITOR. CALL LIGHT WITHIN REACH.
[2020-05-17 08:00] VITALS: BP 128/80
--- NOTE | 2020-05-17 10:08 | NUR ---
SPEECH PATHOLOGY Speech therapist attempted to see patient for evaluation. Nurse on floor informed clinician that this patient is suspected COVID-19 positive and requested the speech evaluation wait until the COVID-19 test results are returned. Speech will follow up as appropriate. Thank you, Charissa Siddiqui MS, CCC-HOUSEKEEPING SUPERVISOR
--- NOTE | 2020-05-17 10:16 | NUR ---
IV started left forearm with #22 protective cath after 1 attempts. Site prepped with Chloroprep. Sterile dressing applied. Patient tolerated procedure well. GEORGETTE JAIN
[2020-05-17 12:00] VITALS: BP 126/82; BP 139/94
--- NOTE | 2020-05-17 13:35 | NUR ---
Weasand Trimmer in to talk to patient. Patient states lives at home with . There are no steps in the home. Physician: ellen Pharmacy: [facility] [place] health services: none Patient's level of ADLs: INDEPENDENT Patient has working utilities: all working DME: none Follow-up physician's appointment after d/c: will be made by hospitalist nurse director upon discharge Does patient want to access PORTAL?: no Discharge plan discussed with patient, she states she lives at home with her , she is independent in adls and ambulation, she states she will return home when discharged and denies any home needs, case management will follow. RANDELL SANTOS
--- NOTE | 2020-05-17 13:46 | NUR ---
EXAM ON HOLD PER DR. ROWELL PENDING RESULT OF COVID 19 TEST.
--- NOTE | 2020-05-17 14:39 | NUR ---
Patient resting quietly with no c/o discomfort. Respirations easy and regular. Vital signs stable. No overt distress. HISSOM,GEORGETTE
--- NOTE | 2020-05-17 15:24 | NUR ---
PT C/O 610 ACHING HEADACHE. MEDICATED PER ORDER. WILL MONITOR FOR RELIEF. RESPS EASY AND NON LABORED. RESTING IN BED WATCHING TV. CALL LIGHT WITHIN REACH.
--- NOTE | 2020-05-17 16:24 | NUR ---
MEDICATION EFFECTIVE PER PT
[2020-05-17 20:00] VITALS: BP 116/79
--- NOTE | 2020-05-17 21:28 | NUR ---
PATIENT GIVEN CEPACOL FOR SORE THROAT. WILL MONITOR
[2020-05-18] VITALS: BP 121/82
[2020-05-18 07:10] LABS: INTERNATIONAL NORM RATIO 5.4 (2.0-3.5)
--- NOTE | 2020-05-18 07:20 | NUR ---
AWARE OF INR OF 5.4. NO NEW ORDERS
[2020-05-18 08:00] VITALS: BP 122/76
--- NOTE | 2020-05-18 09:00 | NUR ---
case management talks with patient, she will return home with and denies any home needs, case management will follow
[2020-05-18 12:00] VITALS: BP 122/76
--- NOTE | 2020-05-18 12:00 | NUR ---
SPEECH THERAPY Patient referred for swallowing evaluation due to reports of dysphagia. Patient admitted with medical hx s/f AFIB, COPD, PNA, and CHF. She is currently on 1.5 L O2 via NC. Assessment performed following completion of breathing treatment. Patient was pleasant throughout session. She was orientated and was a good historian. She reported difficulty swallowing with discomfort noted in center of chest at times during meals, further stating she at times feels she is going to "throw up." Patient reports sensation that fluids sometimes "back up into her throat" but she denies emesis or regurgitation of food. She stated Pepto-Bismol has previously assisted to reduce discomfort. Oral mech exam revleaed natural teeth in somewhat poor condition with several missing. Lingual stength, ROM, and coordination were WFL with mild impairments in labial ROM however functional labial strength and coordination. Volitional swallow was functional, with wet baseline cough noted. Patient reported that she is a fast eater, but has tried to slow down over the past week. Patient assessed with thin liquid, applesauce, and shyann crackers. During trials of solid items, she endorsed "discomfort" in central chest area. She was given sips of liquid which patient reports assisted in reducing discomfort. Liquids assessed with ice chip, tsp of liquid, liquid by straw, and liquid by cup. No overt s/s penetration/aspiration observed during trials of ice and tsp of water. During trial of liquid via straw, patient required double swallow with throat clear elicited. Straw removed with cues to perform small single sips via cup. No overt s/s of penetration observed with use of safe/compensatory strategies. RECOMMENDATIONS: -Regular diet with thin liquid -NO STRAWS -Safe/compensatory swallowing strategies (small bites, small bips, alternate between solids and liquids) -Sit upright at 90 degrees during meals and for at least 30 minutes following PO intake Speech therapy to perform follow up treatment at a meal to ensure safety and tolerance of recommened diet with use of safe swallowing strategies. Results and recommendations were shared with patient and patient's nurse who verbalized understanding. Thank you for your consultation. Divine Greenberg MA [facility]-TECHNICAL DATA ANALYST
--- NOTE | 2020-05-18 12:44 | NUR ---
Shift chart check completed.
[2020-05-18 16:04] VITALS: BP 105/72
[2020-05-18 20:00] VITALS: BP 125/76
[2020-05-19] VITALS: BP 133/91
[2020-05-19 07:32] LABS: HEMATOCRIT 33.1 % (37.0-47.0); LYMPH % 9.4 % (27.0-41.0); MEAN CELL VOLUME 84.9 fl (81.0-99.0); MEAN CORPUSCULAR HGB 24.9 pg (27.0-31.0); MEAN CORPUSCULAR HGB CONC 29.3 g/dl (33.0-37.0); MEAN PLATELET VOLUME 10.2 fl (9.6-12.3); MONO # 0.7 10*3/uL (0.1-1.0); MONO % 6.9 % (3.0-9.0); NEUT % 83.1 % (47.0-73.0); PLATELET COUNT AUTOMATED 242 10*3/uL (130-400); RED CELL DISTRI WIDTH 15.2 % (0-14.5); WHITE BLOOD COUNT 10.8 10*3/uL (4.8-10.8)
[2020-05-19 07:52] LABS: BUN 26 mg/dl (7-24); CHLORIDE 106 mmol/L (98-107); CREATININE 0.77 mg/dL (0.55-1.02); POTASSIUM 4.1 mmol/L (3.5-5.1); SODIUM 142 mmol/L (136-145)
[2020-05-19 08:00] VITALS: BP 116/70
--- NOTE | 2020-05-19 09:00 | NUR ---
case management visits with patient, she states she is a possibly discharge to home today. discussed with her [facility] and educated her on the services they provide. she declined any home needs at this time
--- NOTE | 2020-05-19 10:19 | NUR ---
PER DR. GREGORY PT SHOUD BE CHANGED FROM COUMADIN TO XARELTO. DR. BADILLO INFORMED.
[2020-05-19] MEDS ORDERED: LOPRESSOR25 MG PO (11:45)
[2020-05-19] MEDS ORDERED: FLECAINIDE ACE100 M1 PO (11:45)
[2020-05-19] MEDS ORDERED: XARE20MG PO (11:45)
[2020-05-19] MEDS ORDERED: LEVOFLOXACIN750 M2 PO (11:46)
[2020-05-19] MEDS ORDERED: PREDNISONE10 MG PO (11:46)
[2020-05-19 12:00] VITALS: BP 132/60
--- NOTE | 2020-05-19 13:01 | NUR ---
SPEECH THERAPY Patient seen for dysphagia treatment this afternoon with snack consisting of applesaue, animal crackers, and thin liquid. Patient required initial cue to slow rate of intake and alternate between solids and liquids. She displayed no difficulty with applesauce or animal crackers across each trial. Intermittent throat clear was observed with thin liquid by cup. Clinician assisted to re-position patient to more upright position in bed, however intermittent throat clear persisted with delayed initiation of pharyngeal swallow observed. Trials of nectar thick liquid were administered in conjunction with additional safe swallowing strategies such as small sips and newly targeted double swallow. Patient displayed tolerance of nectar-thick liquids with use of swallowing strategies across each trial. Education provided on importance of use of thickener and swallowing strategies, including carryover at home. Patient educated on "Thick It" and where to buy it. She was receptive toward education and was compliant during treatment this date. RECOMMENDATIONS: Patient diet to be downgraded to NECTAR THICK liquids. Continue with previously mentioned safe swallowing strategies. Speech therapy to continue follow up dysphagia treatment. Message about diet downgrade was left via phone to patient's nurse. Divine Greenberg MA CCC-MARKETING AGENT
--- NOTE | 2020-05-19 14:23 | NUR ---
PT DISCHARGED HOME AT THIS TIME VIA WHEELCHAIR. PT INSTRUCTED TO TALENT MANAGEMENT MANAGER ALEKSRELTO SCRIPT AT THE [facility] AND THAT HER OTHER SCRIPTS WERE SENT TO [facility]. HEPLOCK REMOVED.
== END 2020-05-19 14:23 | disposition home or self-care (01) | DRG 871 ==
LOC: ED 02:30 → EDHOLD 03:49 → 4E 03:49 → ICCU 04:07 → 4E 05-16 12:19
PROVIDERS: Emergency Medicine; Family Medicine; Internal Medicine; Internal Medicine Critical Care Medicine; Student in an Organized Health Care Education/Training Program; ADMIT Internal Medicine; ATTEND Internal Medicine
DX: A41.9 Sepsis, unspecified organism (principal); J18.9 Pneumonia, unspecified organism; J96.21 Acute and chronic respiratory failure with hypoxia; J96.22 Acute and chronic respiratory failure with hypercapnia; J44.1 Chronic obstructive pulmonary disease with (acute) exacerbation; J44.0 Chronic obstructive pulmonary disease with (acute) lower respiratory infection; I48.20 Chronic atrial fibrillation, unspecified; Z20.828 Contact with and (suspected) exposure to other viral communicable diseases; R65.20 Severe sepsis without septic shock; T45.515A Adverse effect of anticoagulants, initial encounter; R91.1 Solitary pulmonary nodule; D64.9 Anemia, unspecified; E87.6 Hypokalemia; R73.9 Hyperglycemia, unspecified; F32.9 Major depressive disorder, single episode, unspecified; F41.9 Anxiety disorder, unspecified; Y92.89 Other specified places as the place of occurrence of the external cause; Z79.01 Long term (current) use of anticoagulants; Z87.891 Personal history of nicotine dependence; Z82.5 Family history of asthma and other chronic lower respiratory diseases; Z79.899 Other long term (current) drug therapy; Z71.6 Tobacco abuse counseling; Z82.49 Family history of ischemic heart disease and other diseases of the circulatory system

== ENCOUNTER 2020-08-22 09:22 | Inpatient (IN) | payer MEDICARE, OTHER ==
[2020-08-22] VITALS (13 sets, daily range): BP systolic 105–153; BP diastolic 58–87
[~2020-08-22] VITALS: Ht 170.1 cm; Wt 68.5 kg
[~2020-08-22 09:22] MED LIST changes: +FLECAINIDE ACE100 M1 PO; +FLUDROCORTISON0.1 MG PO; +LEVOFLOXACIN750 M2 PO; +LOPRESSOR25 MG PO; +XARE20MG PO
[2020-08-22 09:40] LABS: ABG BASE EXCESS 1.8 mmol/L (-2.0-2.0); ARTERIAL BLOOD GAS PH 7.41 (7.35-7.45); ARTERIAL BLOOD GAS PO2 65.3 (80-90)
[2020-08-22 09:50] LABS: HEMATOCRIT 23.8 % (37.0-47.0); MEAN CELL VOLUME 78.8 fl (81.0-99.0); MEAN CORPUSCULAR HGB 21.5 pg (27.0-31.0); MEAN CORPUSCULAR HGB CONC 27.3 g/dl (33.0-37.0); MEAN PLATELET VOLUME 10.6 fl (9.6-12.3); PLATELET COUNT AUTOMATED 232 10*3/uL (130-400); RED BLOOD COUNT 3.02 10*6/uL (4.10-5.10); WHITE BLOOD COUNT 9.5 10*3/uL (4.8-10.8)
[2020-08-22 09:59] LABS: ACT PARTIAL THROMBO TIME 29.7 SECONDS (20.0-32.1); INTERNATIONAL NORM RATIO 1.5 (2.0-3.5)
[2020-08-22 10:05] LABS: ALBUMIN 3.6 gm/dl (3.1-4.5); ALKALINE PHOSPHATASE 57 U/L (45-117); BUN 19 mg/dl (7-24); CHLORIDE 110 mmol/L (98-107); CREATININE 0.68 mg/dL (0.55-1.02); POTASSIUM 3.2 mmol/L (3.5-5.1); SGOT/AST 7 IU/L (3-35); SGPT/ALT 15 U/L (12-78); SODIUM 145 mmol/L (136-145); TOTAL PROTEIN 6.7 gm/dL (6.4-8.2)
[2020-08-22 10:07] LABS: TROPONIN I < 0.015 ng/ml (<0.045)
[2020-08-22 10:10] LABS: BASOPHILS 1 % (0-1); MICROCYTOSIS SLIGHT; OVALOCYTES FEW; PLATELET SUFFICIENCY NORMAL (NORMAL); POLYCHROMASIA SLIGHT; SCHISTOCYTES FEW; TARGET CELLS FEW; TOTAL CELLS COUNTED 100 #CELLS
[2020-08-22 10:14] LABS: THYROID STIM HORMONE (HS) 3.25 uIU/ml (0.358-4.75)
[2020-08-22 17:02] LABS: BASO # 0.1 10*3/uL (0.0-0.1); BASO % 0.8 % (0.0-1.0); EOS % 0.1 % (1.0-4.0); HEMATOCRIT 25.6 % (37.0-47.0); LYMPH # 0.8 10*3/uL (1.3-4.4); LYMPH % 7.6 % (27.0-41.0); MEAN CELL VOLUME 78.8 fl (81.0-99.0); MEAN CORPUSCULAR HGB 23.1 pg (27.0-31.0); MEAN CORPUSCULAR HGB CONC 29.3 g/dl (33.0-37.0); MEAN PLATELET VOLUME 10.8 fl (9.6-12.3); MONO # 0.7 10*3/uL (0.1-1.0); MONO % 6.1 % (3.0-9.0); PLATELET COUNT AUTOMATED 215 10*3/uL (130-400); RED BLOOD COUNT 3.25 10*6/uL (4.10-5.10); RED CELL DISTRI WIDTH 17.4 % (0-14.5); WHITE BLOOD COUNT 10.6 10*3/uL (4.8-10.8)
[2020-08-23] VITALS: BP 108/64
[2020-08-23 04:00] VITALS: BP 104/58
[2020-08-23 06:19] LABS: HEMATOCRIT 25.6 % (37.0-47.0); MEAN CELL VOLUME 78.5 fl (81.0-99.0); MEAN CORPUSCULAR HGB 22.4 pg (27.0-31.0); MEAN CORPUSCULAR HGB CONC 28.5 g/dl (33.0-37.0); MEAN PLATELET VOLUME 11.1 fl (9.6-12.3); PLATELET COUNT AUTOMATED 211 10*3/uL (130-400); RED BLOOD COUNT 3.26 10*6/uL (4.10-5.10); RED CELL DISTRI WIDTH 17.5 % (0-14.5); WHITE BLOOD COUNT 6.2 10*3/uL (4.8-10.8)
[2020-08-23 06:27] LABS: ACT PARTIAL THROMBO TIME 27.8 SECONDS (20.0-32.1); INTERNATIONAL NORM RATIO 1.3 (2.0-3.5)
[2020-08-23 06:35] LABS: ALBUMIN 3.5 gm/dl (3.1-4.5); BUN 13 mg/dl (7-24); CHLORIDE 106 mmol/L (98-107); CHOLESTEROL 114 mg/dL (<200); CREATININE 0.71 mg/dL (0.55-1.02); POTASSIUM 3.6 mmol/L (3.5-5.1); SGOT/AST 10 IU/L (3-35); SGPT/ALT 14 U/L (12-78); SODIUM 145 mmol/L (136-145); TOTAL PROTEIN 6.3 gm/dL (6.4-8.2); TRIGLYCERIDES 45 mg/dl (<150); VLDL CHOLESTEROL 9 mg/dL (6-40)
[2020-08-23 06:36] LABS: ALKALINE PHOSPHATASE 51 U/L (45-117); HDL CHOLESTEROL 55 mg/dl (40-60); LDL CHOLESTEROL 50 mg/dL (9-159)
[2020-08-23 07:14] LABS: BASOPHILS 1 % (0-1); MICROCYTOSIS SLIGHT; POLYCHROMASIA SLIGHT; TOTAL CELLS COUNTED 100 #CELLS
[2020-08-23 07:15] LABS: PLATELET SUFFICIENCY NORMAL (NORMAL); SCHISTOCYTES FEW; TARGET CELLS FEW
[2020-08-23 08:00] VITALS: BP 120/78
[2020-08-23 12:00] VITALS: BP 114/66
[2020-08-23 16:00] VITALS: BP 110/60
[2020-08-23 20:00] VITALS: BP 109/57
[2020-08-24] VITALS (16 sets, daily range): BP systolic 92–130; BP diastolic 51–67
[2020-08-24 06:42] LABS: HEMATOCRIT 23.7 % (37.0-47.0); MEAN CELL VOLUME 78.2 fl (81.0-99.0); MEAN CORPUSCULAR HGB 22.8 pg (27.0-31.0); MEAN CORPUSCULAR HGB CONC 29.1 g/dl (33.0-37.0); MEAN PLATELET VOLUME 10.9 fl (9.6-12.3); PLATELET COUNT AUTOMATED 210 10*3/uL (130-400); RED BLOOD COUNT 3.03 10*6/uL (4.10-5.10); RED CELL DISTRI WIDTH 18.6 % (0-14.5); WHITE BLOOD COUNT 16.6 10*3/uL (4.8-10.8)
[2020-08-24 06:55] LABS: ALBUMIN 3.4 gm/dl (3.1-4.5); ALKALINE PHOSPHATASE 45 U/L (45-117); CHLORIDE 105 mmol/L (98-107); CREATININE 0.76 mg/dL (0.55-1.02); POTASSIUM 2.9 mmol/L (3.5-5.1); SGOT/AST 9 IU/L (3-35); SGPT/ALT 14 U/L (12-78); SODIUM 145 mmol/L (136-145); TOTAL PROTEIN 6.2 gm/dL (6.4-8.2)
[2020-08-24 07:08] LABS: BUN 23 mg/dl (7-24)
[2020-08-24 07:21] LABS: MICROCYTOSIS SLIGHT; OVALOCYTES FEW; PLATELET SUFFICIENCY NORMAL (NORMAL); POLYCHROMASIA SLIGHT; TARGET CELLS FEW; TOTAL CELLS COUNTED 100 #CELLS
[2020-08-24 07:22] LABS: SCHISTOCYTES FEW
[2020-08-24 16:11] LABS: HEMATOCRIT 28.1 % (37.0-47.0); MEAN CELL VOLUME 78.1 fl (81.0-99.0); MEAN CORPUSCULAR HGB 23.9 pg (27.0-31.0); MEAN CORPUSCULAR HGB CONC 30.6 g/dl (33.0-37.0); MEAN PLATELET VOLUME 11.5 fl (9.6-12.3); PLATELET COUNT AUTOMATED 234 10*3/uL (130-400)
[2020-08-24 16:22] LABS: BUN 29 mg/dl (7-24); CHLORIDE 104 mmol/L (98-107); CREATININE 1.04 mg/dL (0.55-1.02); POTASSIUM 2.9 mmol/L (3.5-5.1); SODIUM 145 mmol/L (136-145)
[2020-08-24 16:40] LABS: PLATELET SUFFICIENCY NORMAL (NORMAL); TOTAL CELLS COUNTED 100 #CELLS
[2020-08-24 16:41] LABS: MICROCYTOSIS MODERATE; POLYCHROMASIA SLIGHT; STOMATOCYTE FEW
[2020-08-25] VITALS: BP 97/55
[2020-08-25 06:19] LABS: HEMATOCRIT 26.6 % (37.0-47.0); MEAN CELL VOLUME 79.4 fl (81.0-99.0); MEAN CORPUSCULAR HGB 23.6 pg (27.0-31.0); MEAN CORPUSCULAR HGB CONC 29.7 g/dl (33.0-37.0); MEAN PLATELET VOLUME 10.7 fl (9.6-12.3); PLATELET COUNT AUTOMATED 204 10*3/uL (130-400); RED BLOOD COUNT 3.35 10*6/uL (4.10-5.10); RED CELL DISTRI WIDTH 18.8 % (0-14.5); WHITE BLOOD COUNT 19.1 10*3/uL (4.8-10.8)
[2020-08-25 06:54] LABS: BUN 34 mg/dl (7-24); CHLORIDE 105 mmol/L (98-107); CREATININE 0.91 mg/dL (0.55-1.02); POTASSIUM 3.4 mmol/L (3.5-5.1); SODIUM 144 mmol/L (136-145)
[2020-08-25 07:32] LABS: MICROCYTOSIS SLIGHT; PLATELET SUFFICIENCY NORMAL (NORMAL); TOTAL CELLS COUNTED 100 #CELLS
[2020-08-25 08:00] VITALS: BP 117/65
[2020-08-25 12:00] VITALS: BP 91/50
[2020-08-25 16:00] VITALS: BP 112/62
[2020-08-25 20:00] VITALS: BP 121/68
[2020-08-26] VITALS: BP 119/74
[2020-08-26 06:34] LABS: HEMATOCRIT 31.2 % (37.0-47.0); MEAN CELL VOLUME 81.3 fl (81.0-99.0); MEAN CORPUSCULAR HGB 22.9 pg (27.0-31.0); MEAN CORPUSCULAR HGB CONC 28.2 g/dl (33.0-37.0); PLATELET COUNT AUTOMATED 237 10*3/uL (130-400); RED BLOOD COUNT 3.84 10*6/uL (4.10-5.10); RED CELL DISTRI WIDTH 19.4 % (0-14.5)
[2020-08-26 06:56] LABS: BUN 34 mg/dl (7-24); CHLORIDE 106 mmol/L (98-107); CREATININE 0.92 mg/dL (0.55-1.02); POTASSIUM 3.6 mmol/L (3.5-5.1); SODIUM 144 mmol/L (136-145)
[2020-08-26 07:51] LABS: PLATELET SUFFICIENCY NORMAL (NORMAL); TOTAL CELLS COUNTED 100 #CELLS
[2020-08-26 08:00] VITALS: BP 129/76
[2020-08-26 12:00] VITALS: BP 122/80
[2020-08-26 16:00] VITALS: BP 125/75
[2020-08-26 20:00] VITALS: BP 113/64
[2020-08-27] VITALS: BP 110/69
[2020-08-27 06:14] LABS: BUN 29 mg/dl (7-24); CHLORIDE 104 mmol/L (98-107); CREATININE 0.88 mg/dL (0.55-1.02); POTASSIUM 3.8 mmol/L (3.5-5.1); SODIUM 145 mmol/L (136-145)
[2020-08-27 06:30] LABS: HEMATOCRIT 32.7 % (37.0-47.0); MEAN CORPUSCULAR HGB 23.1 pg (27.0-31.0); MEAN CORPUSCULAR HGB CONC 28.1 g/dl (33.0-37.0); PLATELET COUNT AUTOMATED 215 10*3/uL (130-400); RED BLOOD COUNT 3.99 10*6/uL (4.10-5.10); RED CELL DISTRI WIDTH 19.9 % (0-14.5); WHITE BLOOD COUNT 12.3 10*3/uL (4.8-10.8)
[2020-08-27 07:56] LABS: OVALOCYTES FEW; PLATELET SUFFICIENCY NORMAL (NORMAL); POLYCHROMASIA SLIGHT; TARGET CELLS FEW; TOTAL CELLS COUNTED 100 #CELLS
[2020-08-27 08:00] VITALS: BP 138/79
[2020-08-27 12:00] VITALS: BP 111/58
[2020-08-27 13:00] VITALS: BP 110/48
[2020-08-27 16:00] VITALS: BP 108/62
[2020-08-27 20:00] VITALS: BP 105/58; BP 105/68
[2020-08-28] VITALS: BP 101/60
[2020-08-28 07:25] LABS: MEAN CELL VOLUME 80.8 fl (81.0-99.0); MEAN CORPUSCULAR HGB 22.8 pg (27.0-31.0); MEAN CORPUSCULAR HGB CONC 28.2 g/dl (33.0-37.0); MEAN PLATELET VOLUME 10.7 fl (9.6-12.3); PLATELET COUNT AUTOMATED 200 10*3/uL (130-400); RED BLOOD COUNT 4.21 10*6/uL (4.10-5.10); RED CELL DISTRI WIDTH 20.1 % (0-14.5); WHITE BLOOD COUNT 11.8 10*3/uL (4.8-10.8)
[2020-08-28 07:41] LABS: BUN 33 mg/dl (7-24); CHLORIDE 102 mmol/L (98-107); CREATININE 0.84 mg/dL (0.55-1.02); POTASSIUM 3.5 mmol/L (3.5-5.1); SODIUM 145 mmol/L (136-145)
[2020-08-28 08:00] VITALS: BP 128/63; BP 133/58
[2020-08-28 08:00] LABS: OVALOCYTES FEW; PLATELET SUFFICIENCY NORMAL (NORMAL); POLYCHROMASIA SLIGHT; SCHISTOCYTES FEW; TARGET CELLS FEW; TOTAL CELLS COUNTED 100 #CELLS
[2020-08-28 08:01] LABS: MICROCYTOSIS SLIGHT
[2020-08-28 12:00] VITALS: BP 133/58; BP 136/52
[2020-08-28 16:00] VITALS: BP 143/62
[2020-08-28 20:00] VITALS: BP 101/63
[2020-08-29] VITALS: BP 104/56
[2020-08-29 06:27] LABS: BASO % 0.1 % (0.0-1.0); EOS % 0.1 % (1.0-4.0); HEMATOCRIT 33.3 % (37.0-47.0); LYMPH # 0.5 10*3/uL (1.3-4.4); LYMPH % 2.9 % (27.0-41.0); MEAN CELL VOLUME 80.2 fl (81.0-99.0); MEAN CORPUSCULAR HGB 22.9 pg (27.0-31.0); MEAN CORPUSCULAR HGB CONC 28.5 g/dl (33.0-37.0); MEAN PLATELET VOLUME 10.7 fl (9.6-12.3); MONO # 1.2 10*3/uL (0.1-1.0); MONO % 7.6 % (3.0-9.0); NEUT # 13.9 10*3/uL (2.3-7.9); NEUT % 88.7 % (47.0-73.0); PLATELET COUNT AUTOMATED 211 10*3/uL (130-400); RED BLOOD COUNT 4.15 10*6/uL (4.10-5.10); RED CELL DISTRI WIDTH 19.9 % (0-14.5); WHITE BLOOD COUNT 15.6 10*3/uL (4.8-10.8)
[2020-08-29 08:00] VITALS: BP 112/57
[2020-08-29 12:00] VITALS: BP 110/52
[2020-08-29 16:00] VITALS: BP 98/51
[2020-08-29 20:00] VITALS: BP 108/53
[2020-08-30] VITALS: BP 94/55
[2020-08-30 07:07] LABS: HEMATOCRIT 33.7 % (37.0-47.0); MEAN CELL VOLUME 80.4 fl (81.0-99.0); MEAN CORPUSCULAR HGB 23.4 pg (27.0-31.0); MEAN CORPUSCULAR HGB CONC 29.1 g/dl (33.0-37.0); MEAN PLATELET VOLUME 9.8 fl (9.6-12.3); PLATELET COUNT AUTOMATED 169 10*3/uL (130-400); RED BLOOD COUNT 4.19 10*6/uL (4.10-5.10); RED CELL DISTRI WIDTH 20.3 % (0-14.5); WHITE BLOOD COUNT 15.1 10*3/uL (4.8-10.8)
[2020-08-30 07:31] LABS: CHLORIDE 100 mmol/L (98-107); CREATININE 0.96 mg/dL (0.55-1.02); POTASSIUM 3.5 mmol/L (3.5-5.1); SODIUM 143 mmol/L (136-145)
[2020-08-30 07:32] LABS: TOTAL CELLS COUNTED 100 #CELLS
[2020-08-30 07:33] LABS: OVALOCYTES FEW; PLATELET SUFFICIENCY NORMAL (NORMAL); POLYCHROMASIA SLIGHT; SCHISTOCYTES FEW; TARGET CELLS FEW
[2020-08-30 07:34] LABS: MICROCYTOSIS SLIGHT
[2020-08-30 07:42] LABS: BUN 43 mg/dl (7-24)
[2020-08-30 08:00] VITALS: BP 116/51
[2020-08-30 12:00] VITALS: BP 91/48
[2020-08-30 16:00] VITALS: BP 73/50
[2020-08-30 18:00] VITALS: BP 88/52
[2020-08-30 20:00] VITALS: BP 97/53
[2020-08-31] VITALS: BP 99/56
[2020-08-31 06:37] LABS: BASO % 0.2 % (0.0-1.0); HEMATOCRIT 33.8 % (37.0-47.0); LYMPH # 0.4 10*3/uL (1.3-4.4); LYMPH % 3.2 % (27.0-41.0); MEAN CELL VOLUME 80.3 fl (81.0-99.0); MEAN CORPUSCULAR HGB CONC 28.7 g/dl (33.0-37.0); MEAN PLATELET VOLUME 10.6 fl (9.6-12.3); MONO # 0.7 10*3/uL (0.1-1.0); MONO % 5.4 % (3.0-9.0); NEUT # 11.9 10*3/uL (2.3-7.9); NEUT % 89.8 % (47.0-73.0); PLATELET COUNT AUTOMATED 177 10*3/uL (130-400); RED BLOOD COUNT 4.21 10*6/uL (4.10-5.10); RED CELL DISTRI WIDTH 20.4 % (0-14.5); WHITE BLOOD COUNT 13.3 10*3/uL (4.8-10.8)
[2020-08-31 06:43] LABS: BUN 42 mg/dl (7-24); CHLORIDE 102 mmol/L (98-107); CREATININE 0.82 mg/dL (0.55-1.02); POTASSIUM 3.9 mmol/L (3.5-5.1); SODIUM 144 mmol/L (136-145)
[2020-08-31 12:00] VITALS: BP 92/48
[2020-08-31] MEDS ORDERED: MIRTAZAPINE15 M2 PO (13:38)
[2020-08-31] MEDS ORDERED: VITAMIN D350 MC2 PO (13:38)
[2020-08-31] MEDS ORDERED: Accuneb 0.1.25 MG/3 NEB (13:38)
[2020-08-31] MEDS ORDERED: PANTOPRAZOLE SO40 MG PO (13:38)
[2020-08-31] MEDS ORDERED: DILTIAZEM CD240 MG PO (13:38)
[2020-08-31] MEDS ORDERED: XARE20MG PO (13:39)
== END 2020-08-31 16:33 | DRG 871 ==
LOC: ED 09:22 → EDHOLD 11:06 → 5E 11:06 → ICCU 11:06 → 5E 08-23 17:30
PROVIDERS: Emergency Medicine; Internal Medicine; Student in an Organized Health Care Education/Training Program; ADMIT Internal Medicine; ATTEND Internal Medicine
PROC: 30233N1 Transfusion of Nonautologous Red Blood Cells into Peripheral Vein, Percutaneous Approach (ICD-10-PCS; principal; 2020-08-22)
PROC: 0DB68ZX Excision of Stomach, Via Natural or Artificial Opening Endoscopic, Diagnostic (ICD-10-PCS; 2020-08-22)
PROC: 0DJD8ZZ Inspection of Lower Intestinal Tract, Via Natural or Artificial Opening Endoscopic (ICD-10-PCS; 2020-08-22)
DX: A41.9 Sepsis, unspecified organism (principal); J96.21 Acute and chronic respiratory failure with hypoxia; K29.71 Gastritis, unspecified, with bleeding; N17.0 Acute kidney failure with tubular necrosis; J44.1 Chronic obstructive pulmonary disease with (acute) exacerbation; J44.0 Chronic obstructive pulmonary disease with (acute) lower respiratory infection; F33.9 Major depressive disorder, recurrent, unspecified; I48.91 Unspecified atrial fibrillation; D64.9 Anemia, unspecified; E87.6 Hypokalemia; R65.20 Severe sepsis without septic shock; I27.20 Pulmonary hypertension, unspecified; R73.9 Hyperglycemia, unspecified; E87.8 Other disorders of electrolyte and fluid balance, not elsewhere classified; F41.1 Generalized anxiety disorder; I50.9 Heart failure, unspecified; I34.0 Nonrheumatic mitral (valve) insufficiency; Z20.822 Contact with and (suspected) exposure to COVID-19; Z87.891 Personal history of nicotine dependence; Z83.6 Family history of other diseases of the respiratory system; Z83.79 Family history of other diseases of the digestive system; J20.9 Acute bronchitis, unspecified

== ENCOUNTER → 2020-11-25 | Outpatient (CLI) | payer MEDICARE, OTHER ==
[~2020-11-25] MED LIST changes: +Accuneb 0.1.25 MG/3 NEB; +DILTIAZEM CD240 MG PO; +MIRTAZAPINE15 M2 PO; +PANTOPRAZOLE SO40 MG PO; +VITAMIN D350 MC2 PO
== END | disposition home or self-care (01) ==
LOC: CT 11-16 10:00
PROVIDERS: ATTEND Internal Medicine Critical Care Medicine
DX: J43.9 Emphysema, unspecified (principal); J90 Pleural effusion, not elsewhere classified; I51.7 Cardiomegaly; I25.10 Atherosclerotic heart disease of native coronary artery without angina pectoris; E04.1 Nontoxic single thyroid nodule; R91.8 Other nonspecific abnormal finding of lung field

== ENCOUNTER 2021-02-05 10:58 | Emergency (ER) | payer MEDICARE, OTHER ==
[~2021-02-05] VITALS: Ht 167.6 cm; Wt 61.2 kg
[2021-02-05 11:31] LABS: BASO # 0.1 10*3/uL (0.0-0.1); BASO % 0.8 % (0.0-1.0); EOS # 0.1 10*3/uL (0.0-0.4); EOS % 1.3 % (1.0-4.0); HEMATOCRIT 30.1 % (37.0-47.0); LYMPH # 0.7 10*3/uL (1.3-4.4); LYMPH % 8.2 % (27.0-41.0); MEAN CELL VOLUME 85.3 fl (81.0-99.0); MEAN CORPUSCULAR HGB 24.9 pg (27.0-31.0); MEAN CORPUSCULAR HGB CONC 29.2 g/dl (33.0-37.0); MEAN PLATELET VOLUME 9.7 fl (9.6-12.3); MONO # 0.5 10*3/uL (0.1-1.0); MONO % 6.2 % (3.0-9.0); NEUT # 7.2 10*3/uL (2.3-7.9); PLATELET COUNT AUTOMATED 231 10*3/uL (130-400); RED BLOOD COUNT 3.53 10*6/uL (4.10-5.10); RED CELL DISTRI WIDTH 15.4 % (0-14.5); WHITE BLOOD COUNT 8.7 10*3/uL (4.8-10.8)
[2021-02-05 11:49] LABS: ALBUMIN 3.6 gm/dl (3.1-4.5); ALKALINE PHOSPHATASE 69 U/L (45-117); BUN 16 mg/dl (7-24); CHLORIDE 106 mmol/L (98-107); CPK 45 U/L (26-192); CREATININE 0.86 mg/dL (0.55-1.02); POTASSIUM 3.4 mmol/L (3.5-5.1); SGOT/AST 13 IU/L (3-35); SGPT/ALT 16 U/L (12-78); SODIUM 141 mmol/L (136-145); TOTAL PROTEIN 6.9 gm/dL (6.4-8.2)
[2021-02-05 11:53] LABS: TROPONIN I < 0.015 ng/ml (<0.045)
[2021-02-05 13:05] LABS: BILIRUBIN Negative (Negative); BLOOD Negative (Negative); CLARITY Clear (Clear); COLOR Yellow (Yellow); GLUCOSE Negative (Negative); KETONE Negative (Negative); LEUKO ESTERASE Negative (Negative); NITRITE Negative (Negative); PH 7.5 (4.5-8.0); SPECIFIC GRAVITY <= 1.005 (1.001-1.030); UROBILINOGEN 0.2 E.U./dl (0.0-1.0)
[2021-02-05 13:22] LABS: BACTERIA TRACE
== END 2021-02-05 14:49 | disposition home or self-care (01) ==
LOC: ED 10:58
PROVIDERS: Emergency Medicine
DX: S22.42XA Multiple fractures of ribs, left side, initial encounter for closed fracture (principal); S00.12XA Contusion of left eyelid and periocular area, initial encounter; I48.91 Unspecified atrial fibrillation; R55 Syncope and collapse; H57.12 Ocular pain, left eye; F41.9 Anxiety disorder, unspecified; J44.9 Chronic obstructive pulmonary disease, unspecified; Z79.899 Other long term (current) drug therapy; Z87.891 Personal history of nicotine dependence; Z95.818 Presence of other cardiac implants and grafts; W19.XXXA Unspecified fall, initial encounter; Y93.89 Activity, other specified; Y92.89 Other specified places as the place of occurrence of the external cause; Y99.8 Other external cause status

== ENCOUNTER 2021-02-15 12:53 | Inpatient (IN) | payer MEDICARE, OTHER ==
[~2021-02-15] VITALS: Ht 167.6 cm; Wt 63.5 kg
[2021-02-15 13:11] VITALS: BP 135/83
[2021-02-15 13:53] LABS: BASO # 0.1 10*3/uL (0.0-0.1); BASO % 0.8 % (0.0-1.0); EOS # 0.1 10*3/uL (0.0-0.4); EOS % 1.1 % (1.0-4.0); HEMATOCRIT 27.5 % (37.0-47.0); LYMPH # 0.7 10*3/uL (1.3-4.4); LYMPH % 8.8 % (27.0-41.0); MEAN CELL VOLUME 84.4 fl (81.0-99.0); MEAN CORPUSCULAR HGB 24.2 pg (27.0-31.0); MEAN CORPUSCULAR HGB CONC 28.7 g/dl (33.0-37.0); MEAN PLATELET VOLUME 10.2 fl (9.6-12.3); MONO # 0.5 10*3/uL (0.1-1.0); MONO % 6.9 % (3.0-9.0); NEUT # 6.2 10*3/uL (2.3-7.9); PLATELET COUNT AUTOMATED 222 10*3/uL (130-400); RED BLOOD COUNT 3.26 10*6/uL (4.10-5.10); RED CELL DISTRI WIDTH 15.6 % (0-14.5); WHITE BLOOD COUNT 7.6 10*3/uL (4.8-10.8)
[2021-02-15 14:07] LABS: ALBUMIN 3.5 gm/dl (3.1-4.5); ALKALINE PHOSPHATASE 79 U/L (45-117); BUN 10 mg/dl (7-24); CHLORIDE 107 mmol/L (98-107); CREATININE 0.58 mg/dL (0.55-1.02); POTASSIUM 3.2 mmol/L (3.5-5.1); SGOT/AST 13 IU/L (3-35); SGPT/ALT 18 U/L (12-78); SODIUM 144 mmol/L (136-145); TOTAL PROTEIN 6.7 gm/dL (6.4-8.2)
[2021-02-15 14:11] LABS: TROPONIN I < 0.015 ng/ml (<0.045)
[2021-02-15 15:13] VITALS: BP 138/88
[2021-02-15 17:29] VITALS: BP 123/73
[2021-02-15 17:40] LABS: BILIRUBIN Negative (Negative); BLOOD Negative (Negative); CLARITY Clear (Clear); COLOR Yellow (Yellow); GLUCOSE Negative (Negative); KETONE Negative (Negative); LEUKO ESTERASE Trace (Negative); NITRITE Negative (Negative); UROBILINOGEN 0.2 E.U./dl (0.0-1.0)
[2021-02-15 17:50] LABS: BACTERIA 1+; RBC 0-2 rbc/hpf (0-2)
[2021-02-15 18:19] VITALS: BP 149/79
[2021-02-15] MEDS ORDERED: CLOPIDOGREL75 MG PO (19:37)
[2021-02-15] MEDS ORDERED: LASIX20 MG PO (19:37)
[2021-02-15] MEDS ORDERED: ASPIRIN CHEWABL81 MG PO (19:38)
[2021-02-15] MEDS ORDERED: METOPROLOL25 MG PO (19:39)
[2021-02-15] MEDS ORDERED: LEXAPRO10 MG PO (19:41)
[2021-02-15] MEDS ORDERED: PROTONIX40 MG PO (19:41)
[2021-02-15] MEDS ORDERED: VALIUM5 MG PO (19:43)
[2021-02-15 20:00] VITALS: BP 130/80
[2021-02-16] VITALS: BP 114/73
[2021-02-16 06:22] LABS: HEMATOCRIT 26.5 % (37.0-47.0); MEAN CELL VOLUME 82.6 fl (81.0-99.0); MEAN CORPUSCULAR HGB 24.3 pg (27.0-31.0); MEAN CORPUSCULAR HGB CONC 29.4 g/dl (33.0-37.0); MEAN PLATELET VOLUME 10.3 fl (9.6-12.3); PLATELET COUNT AUTOMATED 230 10*3/uL (130-400); RED BLOOD COUNT 3.21 10*6/uL (4.10-5.10); RED CELL DISTRI WIDTH 15.4 % (0-14.5); WHITE BLOOD COUNT 5.9 10*3/uL (4.8-10.8)
[2021-02-16 06:25] LABS: ALBUMIN 3.3 gm/dl (3.1-4.5); BUN 11 mg/dl (7-24); CHLORIDE 106 mmol/L (98-107); SGOT/AST 13 IU/L (3-35); SGPT/ALT 18 U/L (12-78); SODIUM 142 mmol/L (136-145); TOTAL PROTEIN 6.6 gm/dL (6.4-8.2)
[2021-02-16 06:34] LABS: ALKALINE PHOSPHATASE 77 U/L (45-117); THYROID STIM HORMONE (HS) 0.511 uIU/ml (0.358-4.75)
[2021-02-16 07:00] LABS: TOTAL CELLS COUNTED 100 #CELLS
[2021-02-16 07:01] LABS: PLATELET SUFFICIENCY NORMAL (NORMAL)
[2021-02-16 08:00] VITALS: BP 130/80
[2021-02-16 12:00] VITALS: BP 126/79
[2021-02-16 16:00] VITALS: BP 107/53
[2021-02-16 20:00] VITALS: BP 120/63
[2021-02-17] VITALS: BP 103/66
[2021-02-17 06:07] LABS: HEMATOCRIT 26.5 % (37.0-47.0); MEAN CELL VOLUME 84.4 fl (81.0-99.0); MEAN CORPUSCULAR HGB 24.8 pg (27.0-31.0); MEAN CORPUSCULAR HGB CONC 29.4 g/dl (33.0-37.0); MEAN PLATELET VOLUME 10.8 fl (9.6-12.3); PLATELET COUNT AUTOMATED 265 10*3/uL (130-400); RED BLOOD COUNT 3.14 10*6/uL (4.10-5.10); RED CELL DISTRI WIDTH 15.9 % (0-14.5); WHITE BLOOD COUNT 19.7 10*3/uL (4.8-10.8)
[2021-02-17 06:22] LABS: BUN 16 mg/dl (7-24); CHLORIDE 106 mmol/L (98-107); CREATININE 0.92 mg/dL (0.55-1.02); POTASSIUM 4.2 mmol/L (3.5-5.1); SODIUM 141 mmol/L (136-145)
[2021-02-17 06:43] LABS: OVALOCYTES FEW; PLATELET SUFFICIENCY NORMAL (NORMAL); TOTAL CELLS COUNTED 100 #CELLS
[2021-02-17 08:00] VITALS: BP 130/78
[2021-02-17 12:00] VITALS: BP 123/61
[2021-02-17 16:00] VITALS: BP 105/67
[2021-02-17 20:00] VITALS: BP 117/79
[2021-02-17 20:50] VITALS: BP 122/68
[2021-02-18] VITALS: BP 115/80
[2021-02-18 04:00] VITALS: BP 136/88
[2021-02-18 06:00] LABS: CHLORIDE 106 mmol/L (98-107); CREATININE 0.85 mg/dL (0.55-1.02); POTASSIUM 4.2 mmol/L (3.5-5.1); SODIUM 142 mmol/L (136-145)
[2021-02-18 06:37] LABS: HEMATOCRIT 24.9 % (37.0-47.0); MEAN CELL VOLUME 83.3 fl (81.0-99.0); MEAN CORPUSCULAR HGB 24.1 pg (27.0-31.0); MEAN CORPUSCULAR HGB CONC 28.9 g/dl (33.0-37.0); MEAN PLATELET VOLUME 10.4 fl (9.6-12.3); NUCLEATED RED BLOOD CELL 0.1 % (0.0-0.0); PLATELET COUNT AUTOMATED 238 10*3/uL (130-400); RED BLOOD COUNT 2.99 10*6/uL (4.10-5.10); RED CELL DISTRI WIDTH 15.8 % (0-14.5); WHITE BLOOD COUNT 15.9 10*3/uL (4.8-10.8)
[2021-02-18 07:11] LABS: PLATELET SUFFICIENCY NORMAL (NORMAL); TOTAL CELLS COUNTED 100 #CELLS
[2021-02-18 08:00] VITALS: BP 134/89
[2021-02-18 08:27] LABS: BUN 29 mg/dl (7-24)
[2021-02-18 09:17] LABS: IRON 12 ug/dL (50-170); TOTAL IRON BINDING CAPACITY 460 ug/dl (250-450)
[2021-02-18 12:00] VITALS: BP 126/81
[2021-02-18 16:00] VITALS: BP 116/66
[2021-02-18 20:00] VITALS: BP 117/80
[2021-02-19] VITALS: BP 131/87
[2021-02-19 04:00] VITALS: BP 136/88
[2021-02-19 06:05] LABS: HEMATOCRIT 26.1 % (37.0-47.0); MEAN CELL VOLUME 83.4 fl (81.0-99.0); MEAN CORPUSCULAR HGB 24.3 pg (27.0-31.0); MEAN CORPUSCULAR HGB CONC 29.1 g/dl (33.0-37.0); MEAN PLATELET VOLUME 10.3 fl (9.6-12.3); NUCLEATED RED BLOOD CELL 0.1 10*3/uL (0.0-0.0); NUCLEATED RED BLOOD CELL 0.5 % (0.0-0.0); PLATELET COUNT AUTOMATED 241 10*3/uL (130-400); RED BLOOD COUNT 3.13 10*6/uL (4.10-5.10); RED CELL DISTRI WIDTH 15.7 % (0-14.5); WHITE BLOOD COUNT 11.5 10*3/uL (4.8-10.8)
[2021-02-19 06:26] LABS: RETICULOCYTE % 1.85 % (0.50-2.50)
[2021-02-19 07:20] LABS: PLATELET SUFFICIENCY NORMAL (NORMAL); POLYCHROMASIA SLIGHT; TOTAL CELLS COUNTED 100 #CELLS
[2021-02-19 08:00] VITALS: BP 134/87
[2021-02-19 11:05] LABS: BUN 28 mg/dl (7-24); CHLORIDE 108 mmol/L (98-107); CREATININE 0.72 mg/dL (0.55-1.02); POTASSIUM 4.2 mmol/L (3.5-5.1); SODIUM 143 mmol/L (136-145)
[2021-02-19 12:00] VITALS: BP 129/84
[2021-02-19 16:00] VITALS: BP 93/59
[2021-02-19 20:00] VITALS: BP 112/72
[2021-02-20] VITALS: BP 131/80
[2021-02-20 06:16] LABS: HEMATOCRIT 27.1 % (37.0-47.0); MEAN CELL VOLUME 83.4 fl (81.0-99.0); MEAN CORPUSCULAR HGB CONC 28.8 g/dl (33.0-37.0); MEAN PLATELET VOLUME 9.9 fl (9.6-12.3); NUCLEATED RED BLOOD CELL 0.1 10*3/uL (0.0-0.0); NUCLEATED RED BLOOD CELL 0.7 % (0.0-0.0); PLATELET COUNT AUTOMATED 224 10*3/uL (130-400); RED BLOOD COUNT 3.25 10*6/uL (4.10-5.10); RED CELL DISTRI WIDTH 15.7 % (0-14.5); WHITE BLOOD COUNT 7.6 10*3/uL (4.8-10.8)
[2021-02-20 06:23] LABS: BUN 26 mg/dl (7-24); CHLORIDE 106 mmol/L (98-107); CREATININE 0.74 mg/dL (0.55-1.02); SODIUM 142 mmol/L (136-145)
[2021-02-20 08:00] VITALS: BP 136/88
[2021-02-20 08:07] LABS: TOTAL PROTEIN, SERUM 5.6 g/dL (6.0-8.5)
[2021-02-20 08:12] LABS: PLATELET SUFFICIENCY NORMAL (NORMAL); SCHISTOCYTES FEW; TOTAL CELLS COUNTED 100 #CELLS
[2021-02-20] MEDS ORDERED: LEVOFLOXACIN750 M2 PO (11:33)
[2021-02-20] MEDS ORDERED: PREDNISONE10 MG PO (11:33)
[2021-02-20 12:00] VITALS: BP 136/88
[2021-02-20 16:00] VITALS: BP 116/68
[2021-02-20 20:00] VITALS: BP 126/72
[2021-02-21] VITALS: BP 112/74
[2021-02-21 06:01] LABS: HEMATOCRIT 28.2 % (37.0-47.0); MEAN CELL VOLUME 83.7 fl (81.0-99.0); MEAN CORPUSCULAR HGB 24.3 pg (27.0-31.0); MEAN CORPUSCULAR HGB CONC 29.1 g/dl (33.0-37.0); MEAN PLATELET VOLUME 9.7 fl (9.6-12.3); NUCLEATED RED BLOOD CELL 0.1 10*3/uL (0.0-0.0); NUCLEATED RED BLOOD CELL 1.3 % (0.0-0.0); PLATELET COUNT AUTOMATED 218 10*3/uL (130-400); RED BLOOD COUNT 3.37 10*6/uL (4.10-5.10); RED CELL DISTRI WIDTH 15.9 % (0-14.5); WHITE BLOOD COUNT 8.4 10*3/uL (4.8-10.8)
[2021-02-21 06:16] LABS: BUN 25 mg/dl (7-24); CHLORIDE 105 mmol/L (98-107); CREATININE 0.78 mg/dL (0.55-1.02); POTASSIUM 3.4 mmol/L (3.5-5.1); SODIUM 142 mmol/L (136-145)
[2021-02-21 07:51] LABS: PLATELET SUFFICIENCY NORMAL (NORMAL); TOTAL CELLS COUNTED 100 #CELLS
[2021-02-21 08:00] VITALS: BP 141/95
[2021-02-21 12:00] VITALS: BP 140/90
[2021-02-21 14:07] LABS: A/G RATIO 1.4 (0.7-1.7); ALBUMIN 3.3 g/dL (2.9-4.4); ALPHA-1-GLOBULIN 0.2 g/dL (0.0-0.4); ALPHA-2-GLOBULIN 0.6 g/dL (0.4-1.0); BETA GLOBULIN 0.9 g/dL (0.7-1.3); GAMMA GLOBULIN 0.6 g/dL (0.4-1.8); GLOBULIN, TOTAL 2.3 g/dL (2.2-3.9); M-SPIKE Not Observed g/dL (Not Observed); PE INTERPRETATION Comment: (.)
[2021-02-21 16:00] VITALS: BP 118/77
[2021-02-21 20:00] VITALS: BP 120/72
[2021-02-22] VITALS (8 sets, daily range): BP systolic 109–150; BP diastolic 64–98
[2021-02-22 06:26] LABS: HEMATOCRIT 27.1 % (37.0-47.0); MEAN CELL VOLUME 82.9 fl (81.0-99.0); MEAN CORPUSCULAR HGB 24.8 pg (27.0-31.0); MEAN CORPUSCULAR HGB CONC 29.9 g/dl (33.0-37.0); MEAN PLATELET VOLUME 9.5 fl (9.6-12.3); NUCLEATED RED BLOOD CELL 0.1 10*3/uL (0.0-0.0); NUCLEATED RED BLOOD CELL 0.9 % (0.0-0.0); PLATELET COUNT AUTOMATED 204 10*3/uL (130-400); RED BLOOD COUNT 3.27 10*6/uL (4.10-5.10); RED CELL DISTRI WIDTH 16.1 % (0-14.5); WHITE BLOOD COUNT 9.1 10*3/uL (4.8-10.8)
[2021-02-22 07:01] LABS: PLATELET SUFFICIENCY NORMAL (NORMAL); TOTAL CELLS COUNTED 100 #CELLS
[2021-02-22 07:03] LABS: BUN 29 mg/dl (7-24); CHLORIDE 104 mmol/L (98-107); CREATININE 0.66 mg/dL (0.55-1.02); POTASSIUM 3.6 mmol/L (3.5-5.1); SODIUM 143 mmol/L (136-145)
[2021-02-23] VITALS: BP 116/63
[2021-02-23 08:00] VITALS: BP 130/86
[2021-02-23 12:00] VITALS: BP 128/78
[2021-02-23 16:00] VITALS: BP 115/73
[2021-02-23 20:00] VITALS: BP 102/63
[2021-02-24] VITALS: BP 109/57
[2021-02-24 08:00] VITALS: BP 122/79
[2021-02-24 12:00] VITALS: BP 110/77
[2021-02-24 16:00] VITALS: BP 103/68
[2021-02-24 20:00] VITALS: BP 122/70
[2021-02-25] VITALS: BP 113/75
[2021-02-25 06:45] LABS: HEMATOCRIT 29.4 % (37.0-47.0); MEAN CELL VOLUME 85.7 fl (81.0-99.0); MEAN CORPUSCULAR HGB 25.4 pg (27.0-31.0); MEAN CORPUSCULAR HGB CONC 29.6 g/dl (33.0-37.0); MEAN PLATELET VOLUME 10.6 fl (9.6-12.3); PLATELET COUNT AUTOMATED 169 10*3/uL (130-400); RED BLOOD COUNT 3.43 10*6/uL (4.10-5.10); RED CELL DISTRI WIDTH 19.7 % (0-14.5); WHITE BLOOD COUNT 10.4 10*3/uL (4.8-10.8)
[2021-02-25 07:04] LABS: BUN 17 mg/dl (7-24); CHLORIDE 101 mmol/L (98-107); POTASSIUM 3.1 mmol/L (3.5-5.1); SODIUM 142 mmol/L (136-145)
[2021-02-25 07:33] LABS: PLATELET SUFFICIENCY NORMAL (NORMAL); TOTAL CELLS COUNTED 100 #CELLS
[2021-02-25 08:00] VITALS: BP 122/71
[2021-02-25 09:14] LABS: ABG BASE EXCESS 12.1 mmol/L (-2.0-2.0); ARTERIAL BLOOD GAS PH 7.485 (7.35-7.45); ARTERIAL BLOOD GAS PO2 93.3 (80-90)
[2021-02-25 12:00] VITALS: BP 110/63
[2021-02-25] MEDS ORDERED: MUCUS RELIEF600 MG PO (12:13)
[2021-02-25] MEDS ORDERED: Carafate1 GM PO (12:13)
[2021-02-25] MEDS ORDERED: ACETAZOLAMIDE250 MG PO (12:13)
[2021-02-25] MEDS ORDERED: BUDESONIDE0.5 MG/2 M NEB (12:13)
[2021-02-25] MEDS ORDERED: PREDNISONE10 MG PO (12:14)
== END 2021-02-25 14:00 | DRG 189 ==
LOC: ED 12:53 → EDHOLD 14:59 → 4E 14:59
PROVIDERS: Family Medicine; Internal Medicine; Internal Medicine Critical Care Medicine; Internal Medicine Hematology & Oncology; ADMIT Internal Medicine; ATTEND Internal Medicine
PROC: 0DB78ZX Excision of Stomach, Pylorus, Via Natural or Artificial Opening Endoscopic, Diagnostic (ICD-10-PCS; principal; 2021-02-22)
DX: J96.01 Acute respiratory failure with hypoxia (principal); K29.71 Gastritis, unspecified, with bleeding; B37.81 Candidal esophagitis; J44.1 Chronic obstructive pulmonary disease with (acute) exacerbation; F33.9 Major depressive disorder, recurrent, unspecified; I50.30 Unspecified diastolic (congestive) heart failure; D50.9 Iron deficiency anemia, unspecified; I48.0 Paroxysmal atrial fibrillation; R91.1 Solitary pulmonary nodule; I27.20 Pulmonary hypertension, unspecified; F41.9 Anxiety disorder, unspecified; D64.9 Anemia, unspecified; E87.6 Hypokalemia; Z95.818 Presence of other cardiac implants and grafts; Z87.891 Personal history of nicotine dependence; Z83.6 Family history of other diseases of the respiratory system; Z68.22 Body mass index [BMI] 22.0-22.9, adult

== ENCOUNTER 2021-02-25 11:14 | Inpatient (IN) | payer MEDICARE, OTHER ==
[~2021-02-25] VITALS: Ht 167.6 cm; Wt 63.5 kg
[~2021-02-25 11:14] MED LIST changes: +ASPIRIN CHEWABL81 MG PO; +CLOPIDOGREL75 MG PO; +LASIX20 MG PO; +LEXAPRO10 MG PO; +METOPROLOL25 MG PO; +PROTONIX40 MG PO; +VALIUM5 MG PO
[2021-02-25] MEDS ORDERED: ACETAZOLAMIDE250 MG PO (12:13)
[2021-02-25] MEDS ORDERED: Carafate1 GM PO (12:13)
[2021-02-25] MEDS ORDERED: BUDESONIDE0.5 MG/2 M NEB (12:13)
[2021-02-25] MEDS ORDERED: MUCUS RELIEF600 MG PO (12:13)
[2021-02-25] MEDS ORDERED: PREDNISONE10 MG PO (12:14)
[2021-02-25 14:34] VITALS: BP 95/54
[2021-02-25 19:06] VITALS: BP 93/72
[2021-02-25 19:36] VITALS: BP 93/72
[2021-02-26 06:57] LABS: HEMATOCRIT 31.6 % (37.0-47.0); MEAN CELL VOLUME 85.9 fl (81.0-99.0); MEAN CORPUSCULAR HGB 25.3 pg (27.0-31.0); MEAN CORPUSCULAR HGB CONC 29.4 g/dl (33.0-37.0); MEAN PLATELET VOLUME 10.3 fl (9.6-12.3); PLATELET COUNT AUTOMATED 187 10*3/uL (130-400); RED BLOOD COUNT 3.68 10*6/uL (4.10-5.10); RED CELL DISTRI WIDTH 20.9 % (0-14.5); WHITE BLOOD COUNT 11.2 10*3/uL (4.8-10.8)
[2021-02-26 07:15] LABS: ALBUMIN 2.8 gm/dl (3.1-4.5); ALKALINE PHOSPHATASE 63 U/L (45-117); BUN 16 mg/dl (7-24); CHLORIDE 104 mmol/L (98-107); CHOLESTEROL 138 mg/dL (<200); CREATININE 0.66 mg/dL (0.55-1.02); LDL CHOLESTEROL 61 mg/dL (9-159); POTASSIUM 3.1 mmol/L (3.5-5.1); SGOT/AST 23 IU/L (3-35); SGPT/ALT 30 U/L (12-78); SODIUM 143 mmol/L (136-145); TOTAL PROTEIN 5.3 gm/dL (6.4-8.2); TRIGLYCERIDES 89 mg/dl (<150)
[2021-02-26 07:49] VITALS: BP 113/65
[2021-02-26 08:05] LABS: PLATELET SUFFICIENCY NORMAL (NORMAL); TOTAL CELLS COUNTED 100 #CELLS
[2021-02-26 08:06] LABS: POLYCHROMASIA SLIGHT
[2021-02-26 08:31] LABS: VITAMIN D, 25-HYDROXY 27.7 ng/mL (30-100)
[2021-02-26 20:00] VITALS: BP 81/50
[2021-02-26 20:38] VITALS: BP 110/62
[2021-02-27 07:18] LABS: BUN 16 mg/dl (7-24); CHLORIDE 107 mmol/L (98-107); CREATININE 0.58 mg/dL (0.55-1.02); POTASSIUM 3.1 mmol/L (3.5-5.1); SODIUM 144 mmol/L (136-145)
[2021-02-27 07:27] VITALS: BP 112/58
[2021-02-27 20:00] VITALS: BP 90/56
[2021-02-27 22:46] VITALS: BP 96/58
[2021-02-28 02:30] VITALS: BP 94/56
[2021-02-28 06:47] LABS: BASO % 0.1 % (0.0-1.0); EOS # 0.1 10*3/uL (0.0-0.4); EOS % 0.9 % (1.0-4.0); HEMATOCRIT 28.6 % (37.0-47.0); LYMPH # 0.8 10*3/uL (1.3-4.4); LYMPH % 7.5 % (27.0-41.0); MEAN CELL VOLUME 88.8 fl (81.0-99.0); MEAN CORPUSCULAR HGB 25.8 pg (27.0-31.0); MONO # 0.6 10*3/uL (0.1-1.0); MONO % 5.7 % (3.0-9.0); NEUT # 9.3 10*3/uL (2.3-7.9); NEUT % 83.5 % (47.0-73.0); PLATELET COUNT AUTOMATED 154 10*3/uL (130-400); RED BLOOD COUNT 3.22 10*6/uL (4.10-5.10); WHITE BLOOD COUNT 11.2 10*3/uL (4.8-10.8)
[2021-02-28 07:06] LABS: BUN 12 mg/dl (7-24); CHLORIDE 107 mmol/L (98-107); POTASSIUM 3.4 mmol/L (3.5-5.1); SODIUM 143 mmol/L (136-145)
[2021-02-28 20:00] VITALS: BP 104/54
[2021-03-01 07:34] VITALS: BP 108/62
[2021-03-01 20:00] VITALS: BP 106/58
[2021-03-02 08:09] VITALS: BP 125/65
[2021-03-02 20:00] VITALS: BP 100/62
[2021-03-03 08:09] VITALS: BP 114/71
[2021-03-03 20:00] VITALS: BP 102/60
[2021-03-04 06:22] LABS: BASO % 0.2 % (0.0-1.0)
[2021-03-04 06:34] LABS: EOS # 0.1 10*3/uL (0.0-0.4); EOS % 1.3 % (1.0-4.0); HEMATOCRIT 27.3 % (37.0-47.0); LYMPH # 0.9 10*3/uL (1.3-4.4); LYMPH % 10.1 % (27.0-41.0); MEAN CELL VOLUME 89.8 fl (81.0-99.0); MEAN PLATELET VOLUME 10.2 fl (9.6-12.3); MONO # 0.8 10*3/uL (0.1-1.0); MONO % 8.5 % (3.0-9.0); NEUT % 78.8 % (47.0-73.0); PLATELET COUNT AUTOMATED 145 10*3/uL (130-400); RED BLOOD COUNT 3.04 10*6/uL (4.10-5.10); RED CELL DISTRI WIDTH 26.6 % (0-14.5); WHITE BLOOD COUNT 8.9 10*3/uL (4.8-10.8)
[2021-03-04 07:16] VITALS: BP 109/71
[2021-03-04] MEDS ORDERED: MUCINEX1200 M1 PO (09:28)
[2021-03-04] MEDS ORDERED: VITAMIN D350 MC2 PO (10:17)
[2021-03-04] MEDS ORDERED: BUPROPION HCL150 M1 PO (10:17)
[2021-03-04] MEDS ORDERED: B121000 MCG/1 IM ×2 (10:17)
[2021-03-04] MEDS ORDERED: ZINC SULFATE50 MG PO (10:17)
== END 2021-03-04 13:25 | disposition home or self-care (01) | DRG 885 ==
LOC: 3N 11:14
PROVIDERS: Registered Nurse; Student in an Organized Health Care Education/Training Program; ADMIT Psychiatry & Neurology Psychiatry; ATTEND Psychiatry & Neurology Psychiatry
DX: F33.2 Major depressive disorder, recurrent severe without psychotic features (principal); J96.11 Chronic respiratory failure with hypoxia; I48.21 Permanent atrial fibrillation; I48.91 Unspecified atrial fibrillation; R91.1 Solitary pulmonary nodule; F41.9 Anxiety disorder, unspecified; J44.9 Chronic obstructive pulmonary disease, unspecified; D50.9 Iron deficiency anemia, unspecified; Z95.818 Presence of other cardiac implants and grafts; Z87.81 Personal history of (healed) traumatic fracture; Z82.5 Family history of asthma and other chronic lower respiratory diseases; Z79.899 Other long term (current) drug therapy

== ENCOUNTER 2021-03-07 19:04 | Inpatient (IN) | payer MEDICARE, OTHER ==
[~2021-03-07] VITALS: Ht 167.6 cm; Wt 63.6 kg
[~2021-03-07 19:04] MED LIST changes: +ACETAZOLAMIDE250 MG PO; +B121000 MCG/1 IM; +BUDESONIDE0.5 MG/2 M NEB; +BUPROPION HCL150 M1 PO; +Carafate1 GM PO; +MUCINEX1200 M1 PO; +MUCUS RELIEF600 MG PO; +ZINC SULFATE50 MG PO
[2021-03-07 19:10] VITALS: BP 134/85
[2021-03-07 20:24] LABS: BASO % 0.5 % (0.0-1.0); EOS # 0.1 10*3/uL (0.0-0.4); EOS % 0.8 % (1.0-4.0); HEMATOCRIT 27.6 % (37.0-47.0); LYMPH # 0.5 10*3/uL (1.3-4.4); LYMPH % 6.1 % (27.0-41.0); MEAN CELL VOLUME 90.8 fl (81.0-99.0); MEAN CORPUSCULAR HGB 27.3 pg (27.0-31.0); MEAN CORPUSCULAR HGB CONC 30.1 g/dl (33.0-37.0); MONO # 0.5 10*3/uL (0.1-1.0); NEUT # 6.6 10*3/uL (2.3-7.9); NEUT % 85.8 % (47.0-73.0); PLATELET COUNT AUTOMATED 143 10*3/uL (130-400); RED BLOOD COUNT 3.04 10*6/uL (4.10-5.10); WHITE BLOOD COUNT 7.7 10*3/uL (4.8-10.8)
[2021-03-07 20:41] LABS: ALBUMIN 3.2 gm/dl (3.1-4.5); ALKALINE PHOSPHATASE 77 U/L (45-117); BUN 15 mg/dl (7-24); CHLORIDE 105 mmol/L (98-107); CREATININE 0.69 mg/dL (0.55-1.02); POTASSIUM 3.2 mmol/L (3.5-5.1); SGOT/AST 17 IU/L (3-35); SGPT/ALT 31 U/L (12-78); SODIUM 141 mmol/L (136-145); TOTAL PROTEIN 5.7 gm/dL (6.4-8.2)
[2021-03-07 20:43] LABS: TROPONIN I < 0.015 ng/ml (<0.045)
[2021-03-08] VITALS (7 sets, daily range): BP systolic 105–133; BP diastolic 66–98
[2021-03-08 03:00] LABS: BILIRUBIN Negative (Negative); BLOOD Trace-Intact (Negative); CLARITY Clear (Clear); COLOR Yellow (Yellow); GLUCOSE Negative (Negative); KETONE Negative (Negative); LEUKO ESTERASE Trace (Negative); NITRITE Positive (Negative); PH 6.5 (4.5-8.0); SPECIFIC GRAVITY <= 1.005 (1.001-1.030); UROBILINOGEN 0.2 E.U./dl (0.0-1.0)
[2021-03-08 03:13] LABS: BACTERIA 3+; EPITHELIAL CELLS 16-20
[2021-03-08 04:27] LABS: BASO % 0.3 % (0.0-1.0); EOS # 0.1 10*3/uL (0.0-0.4); EOS % 0.8 % (1.0-4.0); HEMATOCRIT 30.6 % (37.0-47.0); LYMPH # 0.6 10*3/uL (1.3-4.4); LYMPH % 6.6 % (27.0-41.0); MEAN CELL VOLUME 90.8 fl (81.0-99.0); MEAN CORPUSCULAR HGB CONC 29.7 g/dl (33.0-37.0); MEAN PLATELET VOLUME 9.6 fl (9.6-12.3); MONO # 0.5 10*3/uL (0.1-1.0); MONO % 5.5 % (3.0-9.0); NEUT # 7.5 10*3/uL (2.3-7.9); NEUT % 86.1 % (47.0-73.0); PLATELET COUNT AUTOMATED 157 10*3/uL (130-400); RED BLOOD COUNT 3.37 10*6/uL (4.10-5.10); RED CELL DISTRI WIDTH 26.7 % (0-14.5); WHITE BLOOD COUNT 8.8 10*3/uL (4.8-10.8)
[2021-03-08 04:43] LABS: ALBUMIN 3.5 gm/dl (3.1-4.5); ALKALINE PHOSPHATASE 79 U/L (45-117); BUN 14 mg/dl (7-24); CHLORIDE 105 mmol/L (98-107); CREATININE 0.68 mg/dL (0.55-1.02); POTASSIUM 3.2 mmol/L (3.5-5.1); SGOT/AST 20 IU/L (3-35); SGPT/ALT 30 U/L (12-78); SODIUM 143 mmol/L (136-145); TOTAL PROTEIN 6.3 gm/dL (6.4-8.2)
[2021-03-08 04:46] LABS: ACT PARTIAL THROMBO TIME 25.1 SECONDS (20.0-32.1); INTERNATIONAL NORM RATIO 1.1 (2.0-3.5)
[2021-03-08] MEDS ORDERED: COLACE100 MG PO (08:05)
[2021-03-09] VITALS (7 sets, daily range): BP systolic 100–115; BP diastolic 60–74
[2021-03-09 06:28] LABS: HEMATOCRIT 27.8 % (37.0-47.0); MEAN CELL VOLUME 92.4 fl (81.0-99.0); MEAN CORPUSCULAR HGB 26.9 pg (27.0-31.0); MEAN CORPUSCULAR HGB CONC 29.1 g/dl (33.0-37.0); MEAN PLATELET VOLUME 10.8 fl (9.6-12.3); PLATELET COUNT AUTOMATED 151 10*3/uL (130-400); RED BLOOD COUNT 3.01 10*6/uL (4.10-5.10); WHITE BLOOD COUNT 6.4 10*3/uL (4.8-10.8)
[2021-03-09 06:39] LABS: BUN 12 mg/dl (7-24); CHLORIDE 103 mmol/L (98-107); CREATININE 0.58 mg/dL (0.55-1.02); POTASSIUM 3.2 mmol/L (3.5-5.1); SODIUM 143 mmol/L (136-145)
[2021-03-09 07:11] LABS: BASOPHILS 4 % (0-1); TOTAL CELLS COUNTED 100 #CELLS
[2021-03-09 07:12] LABS: PLATELET SUFFICIENCY NORMAL (NORMAL)
[2021-03-10 07:12] LABS: BUN 11 mg/dl (7-24); CHLORIDE 102 mmol/L (98-107); CREATININE 0.59 mg/dL (0.55-1.02); POTASSIUM 3.1 mmol/L (3.5-5.1); SODIUM 141 mmol/L (136-145)
[2021-03-10 08:00] VITALS: BP 103/60
[2021-03-10 12:00] VITALS: BP 102/66
[2021-03-10 16:00] VITALS: BP 103/58
[2021-03-10 20:00] VITALS: BP 87/61
[2021-03-11] VITALS: BP 90/60
[2021-03-11 06:05] LABS: BASO # 0.1 10*3/uL (0.0-0.1); BASO % 0.9 % (0.0-1.0); EOS # 0.1 10*3/uL (0.0-0.4); EOS % 1.8 % (1.0-4.0); HEMATOCRIT 26.7 % (37.0-47.0); LYMPH # 0.8 10*3/uL (1.3-4.4); LYMPH % 15.3 % (27.0-41.0); MEAN CELL VOLUME 92.1 fl (81.0-99.0); MEAN CORPUSCULAR HGB 26.9 pg (27.0-31.0); MEAN CORPUSCULAR HGB CONC 29.2 g/dl (33.0-37.0); MEAN PLATELET VOLUME 10.6 fl (9.6-12.3); MONO # 0.5 10*3/uL (0.1-1.0); MONO % 9.9 % (3.0-9.0); NEUT # 3.9 10*3/uL (2.3-7.9); NEUT % 71.7 % (47.0-73.0); PLATELET COUNT AUTOMATED 159 10*3/uL (130-400); RED CELL DISTRI WIDTH 27.2 % (0-14.5); WHITE BLOOD COUNT 5.5 10*3/uL (4.8-10.8)
[2021-03-11 06:27] LABS: BUN 11 mg/dl (7-24); CHLORIDE 99 mmol/L (98-107); CREATININE 0.69 mg/dL (0.55-1.02); POTASSIUM 3.7 mmol/L (3.5-5.1); SODIUM 141 mmol/L (136-145)
[2021-03-11 08:00] VITALS: BP 118/71
[2021-03-11 12:00] VITALS: BP 91/59
[2021-03-11 16:00] VITALS: BP 141/71
[2021-03-11 20:00] VITALS: BP 085/43; BP 92/58
[2021-03-12] VITALS: BP 108/62
[2021-03-12 06:23] LABS: BUN 12 mg/dl (7-24); CHLORIDE 103 mmol/L (98-107); CREATININE 0.63 mg/dL (0.55-1.02); POTASSIUM 3.9 mmol/L (3.5-5.1); SODIUM 143 mmol/L (136-145)
[2021-03-12 08:00] VITALS: BP 109/72
[2021-03-12 08:23] LABS: BASO # 0.1 10*3/uL (0.0-0.1); BASO % 1.4 % (0.0-1.0); EOS # 0.1 10*3/uL (0.0-0.4); EOS % 2.4 % (1.0-4.0); HEMATOCRIT 28.2 % (37.0-47.0); LYMPH # 0.8 10*3/uL (1.3-4.4); LYMPH % 17.1 % (27.0-41.0); MEAN CELL VOLUME 92.5 fl (81.0-99.0); MEAN CORPUSCULAR HGB 27.2 pg (27.0-31.0); MEAN CORPUSCULAR HGB CONC 29.4 g/dl (33.0-37.0); MEAN PLATELET VOLUME 10.6 fl (9.6-12.3); MONO # 0.4 10*3/uL (0.1-1.0); MONO % 8.2 % (3.0-9.0); NEUT # 3.5 10*3/uL (2.3-7.9); NEUT % 70.7 % (47.0-73.0); PLATELET COUNT AUTOMATED 196 10*3/uL (130-400); RED BLOOD COUNT 3.05 10*6/uL (4.10-5.10); RED CELL DISTRI WIDTH 26.7 % (0-14.5); WHITE BLOOD COUNT 4.9 10*3/uL (4.8-10.8)
[2021-03-12 12:00] VITALS: BP 104/70
[2021-03-12 16:00] VITALS: BP 102/57
[2021-03-12 20:00] VITALS: BP 105/87
[2021-03-13] VITALS: BP 110/78
[2021-03-13 06:29] LABS: BASO # 0.1 10*3/uL (0.0-0.1); BASO % 1.2 % (0.0-1.0); EOS # 0.2 10*3/uL (0.0-0.4); HEMATOCRIT 29.7 % (37.0-47.0); LYMPH # 0.7 10*3/uL (1.3-4.4); LYMPH % 14.6 % (27.0-41.0); MEAN CELL VOLUME 91.7 fl (81.0-99.0); MEAN CORPUSCULAR HGB 27.2 pg (27.0-31.0); MEAN CORPUSCULAR HGB CONC 29.6 g/dl (33.0-37.0); MEAN PLATELET VOLUME 10.5 fl (9.6-12.3); MONO # 0.3 10*3/uL (0.1-1.0); MONO % 6.7 % (3.0-9.0); NEUT # 3.8 10*3/uL (2.3-7.9); NEUT % 74.1 % (47.0-73.0); PLATELET COUNT AUTOMATED 224 10*3/uL (130-400); RED BLOOD COUNT 3.24 10*6/uL (4.10-5.10); RED CELL DISTRI WIDTH 26.3 % (0-14.5); WHITE BLOOD COUNT 5.1 10*3/uL (4.8-10.8)
[2021-03-13 06:49] LABS: BUN 12 mg/dl (7-24); CHLORIDE 102 mmol/L (98-107); CREATININE 0.75 mg/dL (0.55-1.02); POTASSIUM 3.7 mmol/L (3.5-5.1); SODIUM 144 mmol/L (136-145)
[2021-03-13 07:47] VITALS: BP 117/80
[2021-03-13 12:00] VITALS: BP 98/53
[2021-03-13] MEDS ORDERED: FLUDROCORTISON0.1 MG PO (14:01)
[2021-03-13] MEDS ORDERED: LASIX40 MG PO (14:01)
== END 2021-03-13 16:23 | disposition home health service (06) | DRG 312 ==
LOC: ED 19:04 → 5E 23:28 → EDHOLD 23:28 → 5E 03-08 01:23
PROVIDERS: Emergency Medicine; Hospitalist; Social Worker Clinical; ADMIT Internal Medicine; ATTEND Internal Medicine
DX: R55 Syncope and collapse (principal); N39.0 Urinary tract infection, site not specified; J96.12 Chronic respiratory failure with hypercapnia; I48.11 Longstanding persistent atrial fibrillation; F33.9 Major depressive disorder, recurrent, unspecified; E44.0 Moderate protein-calorie malnutrition; K92.2 Gastrointestinal hemorrhage, unspecified; S02.2XXA Fracture of nasal bones, initial encounter for closed fracture; D50.8 Other iron deficiency anemias; R29.6 Repeated falls; I27.20 Pulmonary hypertension, unspecified; I50.9 Heart failure, unspecified; F41.9 Anxiety disorder, unspecified; D64.9 Anemia, unspecified; E87.6 Hypokalemia; B96.20 Unspecified Escherichia coli [E. coli] as the cause of diseases classified elsewhere; W19.XXXA Unspecified fall, initial encounter; I08.1 Rheumatic disorders of both mitral and tricuspid valves; J44.9 Chronic obstructive pulmonary disease, unspecified; S06.9X0A Unspecified intracranial injury without loss of consciousness, initial encounter; X58.XXXA Exposure to other specified factors, initial encounter; Y93.89 Activity, other specified; Y92.89 Other specified places as the place of occurrence of the external cause; Y99.8 Other external cause status; Z82.5 Family history of asthma and other chronic lower respiratory diseases; Z79.899 Other long term (current) drug therapy; Z68.22 Body mass index [BMI] 22.0-22.9, adult

== ENCOUNTER → 2022-07-26 | Outpatient (CLI) | payer MEDICARE, OTHER ==
[~2022-07-26] MED LIST changes: +COLACE100 MG PO; +LASIX40 MG PO
== END | disposition home or self-care (01) ==
LOC: LAB 07-25 10:12
PROVIDERS: ATTEND Family Medicine
DX: J44.1 Chronic obstructive pulmonary disease with (acute) exacerbation (principal); J06.9 Acute upper respiratory infection, unspecified

== ENCOUNTER 2023-04-11 18:40 | Inpatient (IN) | payer MEDICARE, OTHER ==
[~2023-04-11] VITALS: Ht 167.6 cm; Wt 62.6 kg
[2023-04-11 18:46] VITALS: BP 156/98
[2023-04-11 19:17] LABS: BASO # 0.1 10*3/uL (0.0-0.1); BASO % 1.2 % (0.0-1.0); EOS # 0.2 10*3/uL (0.0-0.4); EOS % 2.1 % (1.0-4.0); LYMPH % 12.6 % (27.0-41.0); MEAN CORPUSCULAR HGB 31.5 pg (27.0-31.0); MEAN CORPUSCULAR HGB CONC 32.4 g/dl (33.0-37.0); MEAN PLATELET VOLUME 9.9 fl (9.6-12.3); MONO # 0.5 10*3/uL (0.1-1.0); MONO % 6.5 % (3.0-9.0); NEUT # 5.9 10*3/uL (2.3-7.9); NEUT % 77.2 % (47.0-73.0); PLATELET COUNT AUTOMATED 168 10*3/uL (130-400); RED BLOOD COUNT 4.64 10*6/uL (4.10-5.10); RED CELL DISTRI WIDTH 13.7 % (0-14.5); WHITE BLOOD COUNT 7.7 10*3/uL (4.8-10.8)
[2023-04-11 19:29] LABS: ACT PARTIAL THROMBO TIME 27.5 SECONDS (20.0-32.1)
[2023-04-11 19:37] LABS: ALKALINE PHOSPHATASE 81 U/L (46-116); BUN 13 mg/dl (9-23); CHLORIDE 105 mmol/L (98-107); POTASSIUM 4.4 mmol/L (3.4-5.1); SGPT/ALT 13 U/L (10-49); TOTAL PROTEIN 6.8 gm/dL (6.0-8.0)
[2023-04-11 21:49] LABS: BILIRUBIN Negative (Negative); BLOOD Negative (Negative); CLARITY Clear (Clear); COLOR Yellow (Yellow); GLUCOSE Negative (Negative); KETONE Negative (Negative); LEUKO ESTERASE Trace (Negative); NITRITE Negative (Negative); PH 5.5 (4.5-8.0); SPECIFIC GRAVITY >= 1.030 (1.001-1.030)
[2023-04-11 21:55] LABS: BACTERIA 1+; RBC 0-2 rbc/hpf (0-2)
[2023-04-11 21:56] LABS: URINE AMPHETAMINES Negative (1000ng/ml); URINE BARBITURATES Negative (200ng/ml); URINE BENZODIAZEPINES Positive (200ng/ml); URINE CANNABINOIDS (THC) Negative (50ng/ml); URINE COCAINE Negative (300ng/ml); URINE METHADONE Negative (300ng/ml); URINE OPIATES Negative (300ng/ml); URINE PHENCYCLIDINE Negative (25ng/ml)
[2023-04-12] VITALS (11 sets, daily range): BP systolic 101–153; BP diastolic 52–100
[2023-04-12 05:40] LABS: ALKALINE PHOSPHATASE 71 U/L (46-116); BUN 13 mg/dl (9-23); CHLORIDE 105 mmol/L (98-107); CHOLESTEROL 136 mg/dL (<200); FREE T4 0.92 ng/dl (0.89-1.76); LDL CHOLESTEROL 75 mg/dL (9-159); POTASSIUM 4.6 mmol/L (3.4-5.1); SGPT/ALT 21 U/L (10-49); TOTAL PROTEIN 6.3 gm/dL (6.0-8.0); TRIGLYCERIDES 38 mg/dl (<150)
[2023-04-12 06:07] LABS: BASO % 0.5 % (0.0-1.0); EOS % 0.1 % (1.0-4.0); LYMPH # 0.7 10*3/uL (1.3-4.4); LYMPH % 8.3 % (27.0-41.0); MEAN CELL VOLUME 96.1 fl (81.0-99.0); MEAN CORPUSCULAR HGB 31.4 pg (27.0-31.0); MEAN CORPUSCULAR HGB CONC 32.6 g/dl (33.0-37.0); MEAN PLATELET VOLUME 10.5 fl (9.6-12.3); MONO # 0.3 10*3/uL (0.1-1.0); MONO % 3.6 % (3.0-9.0); NEUT # 7.2 10*3/uL (2.3-7.9); NEUT % 87.1 % (47.0-73.0); PLATELET COUNT AUTOMATED 170 10*3/uL (130-400); RED BLOOD COUNT 4.37 10*6/uL (4.10-5.10); RED CELL DISTRI WIDTH 13.6 % (0-14.5); WHITE BLOOD COUNT 8.2 10*3/uL (4.8-10.8)
[2023-04-12 07:18] LABS: VITAMIN D, 25-HYDROXY 41.5 ng/mL (30-100)
[2023-04-12] MEDS ORDERED: DIAZEPAM5 MG PO (11:16)
[2023-04-12] MEDS ORDERED: Bactroban Oint22 GM T (11:17)
[2023-04-12] MEDS ORDERED: MELATONIN3 MG PO (11:19)
[2023-04-12] MEDS ORDERED: MIRTAZAPINE7.5 MG PO (11:21)
[2023-04-12 15:16] LABS: BASO % 0.5 % (0.0-1.0); EOS % 0.3 % (1.0-4.0); HEMATOCRIT 41.6 % (37.0-47.0); LYMPH # 0.7 10*3/uL (1.3-4.4); LYMPH % 8.4 % (27.0-41.0); MEAN CELL VOLUME 95.2 fl (81.0-99.0); MEAN CORPUSCULAR HGB 31.4 pg (27.0-31.0); MEAN CORPUSCULAR HGB CONC 32.9 g/dl (33.0-37.0); MEAN PLATELET VOLUME 9.9 fl (9.6-12.3); MONO # 0.4 10*3/uL (0.1-1.0); MONO % 4.4 % (3.0-9.0); NEUT # 6.8 10*3/uL (2.3-7.9); PLATELET COUNT AUTOMATED 150 10*3/uL (130-400); RED BLOOD COUNT 4.37 10*6/uL (4.10-5.10); RED CELL DISTRI WIDTH 13.3 % (0-14.5); WHITE BLOOD COUNT 7.9 10*3/uL (4.8-10.8)
[2023-04-12 15:37] LABS: ALKALINE PHOSPHATASE 63 U/L (46-116); BUN 11 mg/dl (9-23); CHLORIDE 103 mmol/L (98-107); POTASSIUM 4.2 mmol/L (3.4-5.1); SGPT/ALT 18 U/L (10-49); TOTAL PROTEIN 6.2 gm/dL (6.0-8.0)
[2023-04-12] MEDS ORDERED: ATORVASTATIN CA80 M1 PO (19:52)
[2023-04-12] MEDS ORDERED: ASPIRIN ADULT L81 M2 PO (19:52)
[2023-04-12] MEDS ORDERED: CLOPIDOGREL75 MG PO (19:52)
== END 2023-04-12 22:20 | disposition short-term general hospital (02) | DRG 65 ==
LOC: ED 18:40 → EDHOLD 23:22
PROVIDERS: Internal Medicine; Nurse Practitioner Family; Student in an Organized Health Care Education/Training Program; ADMIT Student in an Organized Health Care Education/Training Program; ATTEND Student in an Organized Health Care Education/Training Program
PROC: 5A1935Z Respiratory Ventilation, Less than 24 Consecutive Hours (ICD-10-PCS; principal; 2023-04-12)
PROC: 0BH17EZ Insertion of Endotracheal Airway into Trachea, Via Natural or Artificial Opening (ICD-10-PCS; 2023-04-12)
DX: I63.541 Cerebral infarction due to unspecified occlusion or stenosis of right cerebellar artery (principal); I48.20 Chronic atrial fibrillation, unspecified; F32.A Depression, unspecified; J43.9 Emphysema, unspecified; R29.721 NIHSS score 21; I27.20 Pulmonary hypertension, unspecified; Z87.891 Personal history of nicotine dependence; Z83.6 Family history of other diseases of the respiratory system